=== PATIENT | female | born 1960 | race Caucasian/White ===

== ENCOUNTER 2022-03-12 06:21 | Day surgery (SDC) | payer BC, SELFPAY ==
[2022-03-12] VITALS (14 sets, daily range): BP systolic 139–184; BP diastolic 90–103; PULSE 60–75; RESP 16; TEMP 36.4–37.1; O2SAT 96–100; BMI 21.1
[2022-03-12] MEDS: ETHYL CHLORIDE 1 APPLICATION 1 APPLIC TOPICAL ×2 (07:05→07:06)
[2022-03-12] MEDS: BUPIVACAINE 0.5% 30 ML INJECTION ×3 (07:05→07:45)
[2022-03-12] MEDS: lidocaine HCL 2 % MULTIDOSE 20 ML VIAL INJECTION ×2 (07:05→07:06)
[2022-03-12] MEDS: LIDOCAINE 1 % PF 30 ML INJECTION (07:45)
[2022-03-12] MEDS: NEOMYCIN/BACITRACIN/POLYMYXIN B 1 APPLIC TOPICAL (08:29)
--- NOTE | 2022-03-14 07:49 | P.ORPRC_ITS ---
Procedure Note Date of procedure: 03/14/22 Procedure: PREOPERATIVE DIAGNOSIS: 1. Right index finger dorsal mucous cyst/benign cyst 2. Right index finger DIP joint dorsal osteophyte 3. Left hand/small finger Dupuytren's contracture with flexion contracture PIP joint of 45? POSTOPERATIVE DIAGNOSIS: 1. Right index finger dorsal mucous cyst/benign cyst 2. Right index finger DIP joint dorsal osteophyte 3. Left hand/small finger Dupuytren's contracture with flexion contracture PIP joint of 45? PROCEDURE: 1. Right index finger open dorsal mucous cyst/benign cyst excision 2. Right index finger DIP joint dorsal osteophyte open excision 3. Left hand/small finger open Dupuytren's contracture release and excision of hyperplastic palmar fibrous tissue SURGEON: Bj Orta MD. DIRECTOR OF CAREER SERVICES: [PABLITO Mensah] - Of note, an assistant director of public works was critical for this case to aid in patient positioning, tissue retraction, limb manipulation/positioning, and closure. ANESTHESIA: [Right index finger digital block via Local anesthetic (50:50 mixture of 1% lidocaine plain and 0.5% marcaine plain)]-8 mL total Left ulnar hand regional block ulnar nerve at the volar ulnar wrist with 50:50 mixture of 1% lidocaine plain and 0.5% Marcaine plain-8 mL total IMPLANTS: None TOURNIQUET: Right-Digital tourniquet index finger for 8 minutes; Left-forearm tourniquet 20 minutes at 225 torr COMPLICATIONS: None evident INDICATIONS: The patient is a pleasant 61-year-old female who has experienced right index finger dorsal mucous cyst development with pain and discomfort. She also has experienced a left small finger flexion contracture at the PIP joint related to Dupuytren's contracture. Both are causing functional limitations for her. Nonoperative management has been tried but unsuccessful. Given the shy lure of nonoperative management, and how this affects daily life, surgery was recommended. DESCRIPTION OF PROCEDURE: Following a thorough discussion of risks, benefits, and alternatives consent was obtained and the operative extremity was marked. The patient was brought to the operating room and placed supine on the operating table. No antibiotics were administered as this was planned to be a local case only. Proper time-out was performed identifying proper patient, site, and procedure. The operative extremity was prepped and draped in the appropriate sterile fashion using ChloraPrep. The limb was exsanguinated and the tourniquet inflated. Began with the right index finger. Transverse incision was made overlying the dorsal D IP joint and T'd on the radial aspect mid axial line. Sharp incision through skin and blunt dissection through subcutaneous tissue allowed us to elevate the fasciocutaneous flaps. The mucous cyst was encountered and tracked to its base at the D IP joint. The extensor tendon was visualized, protected, and elevated to expose the dorsal D IP joint. Small portion of the radial capsular tissue was excised and a combination of rongeur and rasp allow this to excise the dorsal osteophyte from the D IP joint seen radiographically. In addition, dermis and subcutaneous tissue was excised at the mucous cyst level. Thorough irrigation normal saline was performed. Digital tourniquet released and hemostasis achieved. Closure was performed with [4-O nylon]. We then turned our attention to the left hand. The limb was exsanguinated and the forearm tourniquet inflated. A Lizzette incision was made along the volar aspect of the small finger extending to the distal palm. Sharp incision through skin allowed us to gripping, the hyperplastic palmar fascial tissue consistent with Dupuytren's contracture. This was cautiously dissected circumferentially as the ulnar digital artery and nerve to the small finger or wrapped around this palmar fascial cord. The flexor tendon was encountered after dissecting down to the staff and mobilizing full-thickness fasciocutaneous flaps. After releasing the Dupuytren's cord distally, we were able to mobilize it proximally completely. It had some connections to hypothenar musculature and the volar palmar fascia. This was released completely and excised. At this stage, the tourniquet was deflated and good pulsatile flow through the ulnar digital artery visualized with brisk capillary refill to the digit distally. Hemostasis achieved. Closure performed with 4-0 nylon in interrupted fashion. Soft dressings were applied, and the patient was awoken/transferred to the recovery room in stable condition. No splint was felt necessary the small finger as it did achieve full extension with gentle passive motion. She will be seen in follow-up with Occupational therapy who will be asked to apply an Orthoplast splint. PLAN: 1. Encourage elevation of the operative extremity. 2. Range of motion of the operative extremity/digits as tolerated. 3. Ibuprofen, acetaminophen and/or Percocet as needed for pain. 4. Follow up with PA visit in 12-16 days for wound check and suture removal & occupational therapy visit for Orthoplast splint fabrication & exercise guidance.
== END 2022-03-12 09:05 | disposition home or self-care (01) ==
PROVIDERS: PCP Physician Assistant; Visit Provider Orthopaedic Surgery Sports Medicine
PROC: (CPT 26160; principal; 2022-03-12 07:30)
DX: M67.441 Ganglion, right hand (principal); M25.741 Osteophyte, right hand; M72.0 Palmar fascial fibromatosis [Dupuytren]
CPT/HCPCS: 26160; 26123; J2001; J3490

== ENCOUNTER 2022-04-05 11:30 | Outpatient (RCR) | payer BC, SELFPAY | END 2022-06-22 15:59 | disposition home or self-care (01) | PROVIDERS: PCP Physician Assistant; Visit Provider Orthopaedic Surgery Sports Medicine | DX: Z98.890 Other specified postprocedural states (principal); Z51.89 Encounter for other specified aftercare | CPT/HCPCS: 97110; 97140; 97165; L3913; X5282 ==

== ENCOUNTER 2022-09-22 09:30 | Emergency (ER) | payer BC, SELFPAY ==
[2022-09-22 09:35] VITALS: BP 128/80; PULSE 90; RESP 18; TEMP 36.3; O2SAT 99; BMI 21.3
--- NOTE | 2022-09-22 10:00 | CRLHL7_ITS ---
For Patients: As a result of the Century Cures Act, medical imaging exams and procedure reports are released immediately into your electronic medical record. You may view this report before your referring provider. If you have questions, please contact your health care provider. INDICATION: Confusion. Trauma. TECHNIQUE: Non-contrast CT of the head is submitted. No comparisons. FINDINGS: The ventricles, sulci and gyri are of normal size, shape and contour. Midline structures are centrally located. No convincing evidence of intra- or extra-axial fluid collections. IMPRESSION: 1. No radiographic evidence of acute intracranial abnormalities. Dictated by Sy Vera MD @ 09/22/2022 11:24:34 AM Please note that all CT scans at this facility use dose modulation, iterative reconstruction, and/or weight-based dosing when appropriate to reduce radiation dose to as low as reasonably achievable. Dictated by: Sy Vera MD @ 09/22/2022 11:24:42 (Electronically Signed)
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
[2022-09-22] MEDS: 0.9 % SODIUM CHLORIDE 1000 ml 1,000 ML 6000 ML IV (10:26)
[2022-09-22 10:33] LABS: Appearance Urine Slightly Cloudy (Clear); Bilirubin Urine 2+ (Negative); Blood Urine Trace-lysed (Negative); Color Urine Yellow (Yellow); Glucose Urine Negative (Negative); Ketones Urine 3+ (Negative); Leukocyte Esterase Urine 1+ (Negative); Nitrite Urine Negative (Negative); Protein Urine 2+ (Negative); Specific Gravity Urine >= 1.030 (1.000-1.030); Urobilinogen Urine 0.2 (0.2-1.0); pH Urine 5.5 (5.0-8.5)
[2022-09-22 10:35] LABS: Basophils Absolute Auto 0.02 K/uL (0.00-0.30); Basophils Percent Auto 0.2 % (0.0-3.0); Hemoglobin* 13.4 gm/dL (12.0-16.0); Immature Granulocytes Abs Auto 0.12 K/uL (0.00-0.30); Immature Granulocytes Pct Auto 1.4 %; Lymphocytes Percent Auto 7.8 % (20-44); Mean Corpuscular HGB Conc 34 gm/dL (32-36); Mean Corpuscular Hemoglobin 38 pg (26-34); Mean Corpuscular Volume 110 fL (80-100); Monocytes Percent Auto 12.8 % (0.0-11.0); Neutrophils Percent Auto 77.8 % (42.0-72.0); Platelet Count* 113 K/uL (140-440); RDW Coefficient of Variation % 16.1 % (11.5-15.5); Red Blood Count 3.56 m/uL (4.00-5.20); White Blood Count* 8.47 K/uL (4.50-11.00)
[2022-09-22 10:40] LABS: Amphetamine Screen Urine Negative (Negative); Barbiturate Screen Urine Negative (Negative); Benzodiazepines Screen Urine Negative (Negative); Cannabinoid Screen Urine Negative (Negative); Cocaine Screen Urine Negative (Negative); Methadone Screen Urine Negative (Negative); Methamphetamines Screen Urine Negative (Negative); Opiate Screen Urine Negative (Negative); Oxycodone Screen Urine Negative (Negative); Phencyclidine Screen Urine Negative (Negative); Tricyclic Antidepressant Urine Negative (Negative)
[2022-09-22 10:41] LABS: Slide Review Reflex No
[2022-09-22 10:44] LABS: Albumin* 5.5 g/dL (3.3-5.0); Chloride* 91 mmol/L (96-114); Sodium* 128 mmol/L (135-149)
[2022-09-22 10:46] LABS: Magnesium* 2.2 mg/dL (1.5-2.6)
[2022-09-22 10:47] LABS: Alanine Aminotransferase* 32 U/L (4-35); Alkaline Phosphatase* 94 U/L (40-150); Aspartate Amino Transferase* 51 U/L (12-35); Bilirubin Direct* 0.6 mg/dL (0.0-0.5); Bilirubin Total* 2.3 mg/dL (0.1-1.5); Blood Urea Nitrogen* 46 mg/dL (7-30); Carbon Dioxide* 19 mmol/L (20-32); Creatinine* 1.8 mg/dL (0.5-1.5); Estimated Glomerular Filt Rate 32 ml/min; Glucose* 91 mg/dL (60-115); Total Protein* 9.3 g/dL (6.0-8.3)
[2022-09-22 10:50] LABS: C Reactive Protein* 1.1 mg/dL (0.5-1.0)
[2022-09-22 11:01] LABS: Ethanol* < 0.01 % (0.01-0.03); NT Pro B Type NatriureticPept* 1930 pg/mL; Potassium* 2.9 mmol/L (3.6-5.1)
[2022-09-22 11:02] LABS: Troponin I* < 0.01 ng/mL (0.01-0.04)
[2022-09-22 11:05] LABS: Bacteria Urine Moderate; RBC Urine 0-2 (0-2); Squamous Epithelial Cell Urine Few (None-Few)
[2022-09-22 11:08] LABS: PCR FLU A Negative PCR FLU A (Negative); PCR FLU B Negative PCR FLU B (Negative); PCR RSV Negative PCR RSV (Negative)
[2022-09-22] MEDS: POTASSIUM CHLORIDE 10 MEQ/100 ML PIGGYBACK 100 MEQ IVPB ×2 (11:17→13:34)
[2022-09-22 11:22] LABS: SARS PCR* Negative SARS-CoV-2 (Negative)
[2022-09-22] MEDS: POTASSIUM BICARB 25 MEQ EFFERVESCENT TAB PO (13:34)
[2022-09-22 13:37] VITALS: BP 153/88; PULSE 72; RESP 18; O2SAT 100
== END 2022-09-22 13:38 | disposition home or self-care (01) ==
PROVIDERS: Emergency Provider Family Medicine
DX: R42 Dizziness and giddiness (principal); E87.6 Hypokalemia; S22.41XA Multiple fractures of ribs, right side, initial encounter for closed fracture; V19.3XXA Pedal cyclist (driver) (passenger) injured in unspecified nontraffic accident, initial encounter
CPT/HCPCS: 36415; 70450; 71250; 80048; 80076; 80306; 81001; 82077; 83735; 83880; 84443; 84484; 85025; 86140; 87086; 87631; 93005; 96365; 96366; 99284; 99285; A9270; J3480; J7030

== ENCOUNTER 2022-11-05 06:00 | Day surgery (SDC) | payer BC, SELFPAY ==
[2022-11-05] MEDS: LACTATED RINGERS 1000 ML 1,000 ML 100 ML IV (06:05)
[2022-11-05] MEDS: SODIUM CHLORIDE 0.9 % (FLUSH) 10 ML SYRINGE IVF (06:18)
[2022-11-05 06:19] VITALS: BP 136/83; PULSE 66; RESP 16; TEMP 36.8; O2SAT 98; BMI 20.7
--- NOTE | 2022-11-05 07:14 | CRLHL7_ITS ---
For Patients: As a result of the Cures Act, medical imaging exams and procedure reports are released immediately into your electronic medical record. You may view this report before your referring provider. If you have questions, please contact your health care provider. Indication: HAMMERTOE CORRECTION Technique: Two fluoroscopic images of the left forefoot. Fluoroscopic time 14.5 seconds. IMPRESSION: Fluoroscopic guidance for percutaneous pin placement about the 2nd, 3rd and 4th toes. Dictated by Joel Benavidez MD @ 11/05/2022 9:34:04 AM (Electronically Signed)
[2022-11-05] MEDS: CEFAZOLIN 1 GM inj IVP (07:20)
[2022-11-05] MEDS: BUPIVACAINE 0.5% 30 ML INJECTION (07:23)
--- NOTE | 2022-11-05 08:18 | W.ANESCHARGE ---
Anesthesia Charges Start Date/Time Anesthesia Start Date: 11/05/22 Anesthesia Start Time: 07:17 Stop Date/Time Anesthesia Stop Date: 11/05/22 Anesthesia Stop Time: 09:24
[2022-11-05 09:23] VITALS: BP 133/79; PULSE 58; RESP 16; TEMP 36.3; O2SAT 100
--- NOTE | 2022-11-05 09:27 | W.ANESCHARGE ---
Anesthesia Charges Start Date/Time Anesthesia Start Date: 11/05/22 Anesthesia Start Time: 07:17 Stop Date/Time Anesthesia Stop Date: 11/05/22 Anesthesia Stop Time: 09:24
[2022-11-05 09:30] VITALS: BP 136/77; PULSE 55; RESP 16; O2SAT 98
--- NOTE | 2022-11-05 09:43 | PM.PROC ---
Procedure Note Date Seen: 11/05/22 Date of procedure: 11/05/22 Will [facility] bill your pro fee for this procedure?: No Pre-op diagnosis: Hammertoe deformity digits 2, 3, 4 and 5 left Post-op diagnosis: same Procedure: 1. Hammertoe correction 2nd digit left 2. Hammertoe correction 3rd digit left 3. Hammertoe correction 4th digit left 4. Hammertoe correction 5th digit left 5. Exostectomy phalanx 5th digit left Procedure Description: Indication for surgery: Patient seen for ongoing hammertoe deformities that she has left him to have surgical correction of. I reviewed the procedure, recovery, expectations and potential complications. These include but are not limited to: Poor wound healing, infection, floating toe, continued pain, potential need for future surgery, nonunion, nerve injury, complex regional pain syndrome, deep venous thrombosis, pulmonary embolism and . She is status risks written consent was obtained. Sites were marked. Procedure: Patient on the operating room placed supine position on operating table the time IV sedation was initiated local anesthetic injected into the left foot. She was prepped and draped in sterile fashion. Standard time-out protocol followed. Left foot was exsanguinated and the ankle tourniquet inflated to 250 mm Hg. Transverse semielliptical incision was made over the PIPJ 2nd toe. Skin wedge was excised. The extensor tendon and joint capsule were transected. The medial and lateral collateral ligaments released. The cartilage and metaphyseal flares were resected with a oscillating saw. The head of the proximal phalanx was fashioned into a PEG with a rotary bur. Base of the middle phalanx was addressed and a hole burred. 0.045 smooth K-wire introduced in the base of the middle phalanx driven out the tip of the toe. The proximal phalanx was placed into the middle phalanx in the appropriate position in the K-wire advanced into the proximal phalanx. Clinically toe sat in excellent position. C-arm confirmed position. After irrigation redundant tendon was excised and repaired with 4-0 Vicryl. Skin closed 4-0 Prolene. Second toe was still elevated. 1 cm incision made over the 2nd MPJ. Blunt dissection down to the extensor tendon and joint capsule. Transverse incision was made through the tendon and joint capsule. Wound irrigated and closed with 4-0 Prolene. Second toe now sat in rectus position. Linear incision was made over the 3rd toe PIPJ extending proximally to the MPJ. The extensor tendon and joint capsule were transected. The medial and lateral collateral ligaments released. The cartilage and metaphyseal flares were resected with a oscillating saw. The head of the proximal phalanx was fashioned into a PEG with a rotary bur. Base of the middle phalanx was addressed and a hole burred. 0.045 smooth K-wire introduced in the base of the middle phalanx driven out the tip of the toe. The proximal phalanx was placed into the middle phalanx in the appropriate position in the K-wire advanced into the proximal phalanx. The extensor tendon and 3rd MPJ capsule were then transected. Clinically toe sat in excellent position. C-arm confirmed position. After irrigation redundant tendon was excised and repaired with 4-0 Vicryl. Skin closed 4-0 Prolene. Linear incisions made over the 4th toe PIPJ extending proximally to the MPJ. The extensor tendon and joint capsule were transected. The medial and lateral collateral ligaments released. The cartilage and metaphyseal flares were resected with a oscillating saw. The head of the proximal phalanx was fashioned into a PEG with a rotary bur. Base of the middle phalanx was addressed and a hole burred. 0.045 smooth K-wire introduced in the base of the middle phalanx driven out the tip of the toe. The proximal phalanx was placed into the middle phalanx in the appropriate position in the K-wire advanced into the proximal phalanx. The extensor tendon and and 4th MPJ capsule were then transected. Clinically toe sat in excellent position. C-arm confirmed position. After irrigation redundant tendon was excised and repaired with 4-0 Vicryl. Skin closed 4-0 Prolene. Linear incision was made over the 5th toe PIPJ. Extensor tendon and joint capsule were transected. The mediolateral collateral ligaments released. The 5th metatarsal proximal phalanx head was resected with an oscillating saw. The proximal aspect of the extensor tendon was released. Wound was thoroughly irrigated. Redundant tendon was excised and then repaired at the PIPJ. Linear incisions made at the lateral DIPJ. Incision taken down to bone. An oscillating saw was used to remove the bony flare from the DIPJ. C-arm confirmed excellent position. Wounds irrigated with normal sterile saline. Skin closed with 4-0 Prolene. All K-wires were bent cut and capped. Sterile dressing was applied. Tourniquet was released and normal capillary fill time returned all digits. She was transferred from OR to PACU vital signs stable and vascular status intact to the left foot. She will be discharged per Anesthesia. She was given both written and verbal postop instructions. She is weight-bearing as tolerated. She is given oxycodone for pain. Follow up in clinic in 2 days. Anesthesia: MAC Surgeon: Lenny Flores DPM Estimated blood loss (mL): 2 Condition: stable Disposition: same day
[2022-11-05 09:45] VITALS: BP 123/95; PULSE 52; RESP 16; O2SAT 99
[2022-11-05 10:00] VITALS: BP 130/79; PULSE 48; RESP 16; O2SAT 99
== END 2022-11-05 10:24 | disposition home or self-care (01) ==
PROVIDERS: PCP Physician Assistant; Visit Provider Podiatrist
PROC: (CPT 28285; principal; 2022-11-05 07:15)
DX: M20.42 Other hammer toe(s) (acquired), left foot (principal)
CPT/HCPCS: 28285 ×4; 01462; 01480; 73620; 76000; J0665; J0690; J2250; J2405; J2704; J3010; J7120

== ENCOUNTER 2022-11-12 18:27 | Emergency (ER) | payer BC, SELFPAY ==
--- NOTE | 2022-11-12 18:31 | CRLHL7_ITS ---
For Patients: As a result of the Century Cures Act, medical imaging exams and procedure reports are released immediately into your electronic medical record. You may view this report before your referring provider. If you have questions, please contact your health care provider. INDICATION: Leg pain and swelling. TECHNIQUE: Ultrasound venous duplex lower left extremity. Compression venous exam was performed using davis-scale, color Doppler, and spectral Doppler analysis. COMPARISON: None. FINDINGS: Deep veins: Sonographic imaging demonstrates the left common femoral, deep femoral, superficial femoral, popliteal, posterior tibial and the contralateral right common femoral veins to be fully compressible with normal color Doppler blood flow. Superficial veins: Greater saphenous vein is fully compressible. No popliteal cyst. IMPRESSION: Normal left lower extremity venous ultrasound, no sign of deep venous thrombosis. Dictated by Joey Hoover MD @ 11/12/2022 7:20:04 PM (Electronically Signed)
[2022-11-12 18:33] VITALS: BP 131/90; PULSE 97; RESP 18; TEMP 36.7; O2SAT 95; BMI 20.6
--- NOTE | 2022-11-12 18:49 | ED_ITS ---
HPI - General Adult General Time Seen by Provider: 18:50 Date Seen: 11/12/22 Chief complaint: Extremity Pain/Injury, Lower Stated complaint: left calf pain, foot surgery 11/05/22 Time Seen by Provider: 11/12/22 18:42 Source: patient, RN notes reviewed and old records reviewed Mode of arrival: ambulatory Limitations: no limitations History of Present Illness HPI narrative: 61-year-old female who comes in today with left calf pain and swelling has been going on for about a week. She notes that she had bunion surgery just prior to onset of symptoms. She is taking aspirin daily. She has noticed over the last couple of days that the swelling in the leg got a little bit better but she has had dyspnea on exertion, no chest pain, little bit of nausea. Related Data Home Medications Medication Instructions Recorded Confirmed atorvastatin 20 mg tablet 20 mg PO QDAY 02/09/22 11/05/22 metoprolol succinate 50 mg 50 mg PO DAILY 03/12/22 04/05/22 tablet,extended release 24 hr albuterol sulfate 90 mcg/actuation 1 - 2 puff inhalation Q4H PRN 11/02/22 11/05/22 aerosol inhaler dyspnea disulfiram 250 mg tablet 250 mg PO DAILY 11/02/22 11/05/22 fluticasone 250 mcg-salmeterol 50 1 inh inhalation BID 11/02/22 11/05/22 mcg/dose blistr powdr for inhalation (Advair Diskus) valacyclovir 1 gram tablet 2,000 mg PO BID PRN 11/02/22 11/02/22 (Valtrex) Previous Rx's Medication Instructions Recorded oxycodone-acetaminophen 5 mg-325 1 tab PO Q4-8H PRN pain #10 tabs 03/12/22 mg tablet (Percocet) Allergies Allergy/AdvReac Type Severity Reaction Status Date / Time No Known Drug Allergies Allergy Verified 11/12/22 19:43 [facility] Medical History (Updated 11/12/22 @ 20:42 by Nathan Noonan MD) Fatty liver ?K76.0 - Fatty (change of) liver, not elsewhere classified (ICD-10) Hypertension ?I10 - Essential (primary) hypertension (ICD-10) Alcohol abuse, in remission ?F10.11 - Alcohol abuse, in remission (ICD-10) GERD (gastroesophageal reflux disease) ?K21.9 - Gastro-esophageal reflux disease without esophagitis (ICD-10) Surgical History Hx of abdominoplasty ?Z98.890 - Other specified postprocedural states (ICD-10) History of hand surgery ?Z98.890 - Other specified postprocedural states (ICD-10) Family History Unknown Myocardial infarction Social History Smoking Status: Former smoker What tobacco products do you use: cigarettes Smoking quit date/years: >15 years ago How often do you have a drink containing alcohol: 4 or more times a week How many standard drinks containing alcohol do you have on a typical day: 3 or 4 How often do you have six or more drinks on one occasion: Daily or almost daily AUDIT-C Alcohol total score: 9 Non-prescribed substance use: denies use Caffeine: Yes Are you using contraception or practicing any form of control: No Exam Narrative: Exam Narrative: General: Well-developed and well-nourished, no acute distress Head: Atraumatic and normocephalic Eyes: Pupils are equal reactive, extraocular motions intact, conjunctiva clear ENT: External nose and ears are normal, posterior pharynx without erythema or exudate Neck: No midline cervical tenderness, full spontaneous range of motion the neck, trachea midline, no adenopathy Heart: Regular rate and rhythm no murmurs or thrills Lungs: Clear to auscultation bilaterally without wheezes or crackles Abdomen: Soft, nontender, nondistended with active bowel sounds Musculoskeletal: No tenderness, deformity, or edema Neurologic: Awake, alert, and oriented x3, no gross focal neurologic deficits, cranial nerves intact as tested Psych: Mood and affect are appropriate Skin: No rashes Const: Vital Signs, click to edit/add: Vital Signs - 24 hr 11/12/22 18:33 Temperature 98.1 F Pulse Rate [Pulse Oximeter] 97 Respiratory Rate 18 Blood Pressure [Le ft Upper Arm] 131/90 H Pulse Oximetry 95 Oxygen Delivery Me thod Room Air Course Course Hospital Course: Patient seen examined, prior records reviewed. Patient with recent left foot surgery, now with left calf pain and swelling, Doppler ultrasound is ordered. She also has developed some shortness of breath, heart rate is little high and oxygen saturation is borderline, concern for pulmonary embolism. CT PE protocol is ordered. Sensation of the foot is intact, capillary refill is normal, no pain out of proportion to suggest compartment syndrome. Reevaluation(s) Time of Reevaluation #1: 20:00 Reevaluation #1: Ultrasound negative for DVT. CT PE study independently interpreted by me does not demonstrate any large central pulmonary embolism, no infiltrates or effusion. Labs independently interpreted by me with reassuring basic panel, normal CBC with no anemia, negative troponin. Patient stable for discharge with outpatient follow-up. Time of Reevaluation #2: 20:41 Reevaluation #2: Patient recheck, stable for discharge, reviewed results Vital Signs Vital signs: Initial Vital Signs Temperature 98.1 F 11/12/22 18:33 Temperature Source Temporal Artery Scan 11/12/22 18:33 Pulse Rate 97 11/12/22 18:33 Respiratory Rate 18 11/12/22 18:33 Blood Pressure 131/90 H 11/12/22 18:33 Blood Pressure Mean 103 11/12/22 18:33 Blood Pressure Position Supine 11/12/22 18:33 Pulse Oximetry 95 11/12/22 18:33 Oxygen Delivery Method Room Air 11/12/22 18:33 Vital Signs Temperature 98.1 F 11/12/22 18:33 Pulse Rate 97 11/12/22 18:33 Respiratory Rate 18 11/12/22 18:33 Blood Pressure 131/90 H 11/12/22 18:33 Pulse Oximetry 95 11/12/22 18:33 Oxygen Delivery Method Room Air 11/12/22 18:33 Temperature 98.1 F 11/12/22 18:33 Pulse Rate 97 11/12/22 18:33 Respiratory Rate 18 11/12/22 18:33 Blood Pressure 131/90 H 11/12/22 18:33 Pulse Oximetry 95 11/12/22 18:33 Oxygen Delivery Method Room Air 11/12/22 18:33 Medical Decision Making Lab Data Labs: Lab Results 11/12/22 11/12/22 Range/Units 19:05 19:22 WBC 5.52 (4.50-11.00) K/uL RBC 3.96 L (4.00-5.20) m/uL Hgb 13.4 (12.0-16.0) gm/dL Hct 39.9 (33.0-51.0) % MCV 101 H (80-100) fL MCH 34 (26-34) pg MCHC 34 (32-36) gm/dL RDW Coeff of Soraida 13.1 (11.5-15.5) % Plt Count 219 (140-440) K/uL Neut % (Auto) 63.9 (42.0-72.0) % Lymph % (Auto) 26.1 (20-44) % [place] % (Auto) 8.3 (0.0-11.0) % Eos % (Auto) 1.3 (0.0-7.0) % Baso % (Auto) 0.4 (0.0-3.0) % Neut # (Auto) 3.53 (1.7-7.0) K/uL Lymph # (Auto) 1.44 (0.90-2.90) K/uL [place] # (Auto) 0.50 (0.00-0.90) K/UL Eos # (Auto) 0.07 (0.00-0.50) K/uL Baso # (Auto) 0.02 (0.00-0.30) K/uL Abs Immat Gran (auto) 0.00 (0.00-0.30) K/uL Imm/Tot Granulo (auto) 0.0 % Sodium 140 (135-149) mmol/L Potassium 3.7 (3.6-5.1) mmol/L Chloride 106 (96-114) mmol/L Carbon Dioxide 24 (20-32) mmol/L BUN 17 (7-30) mg/dL Creatinine 0.8 (0.5-1.5) mg/dL Estimated Creat Clear 64.26 Estimated GFR 84 ml/min Glucose 123 H (60-115) mg/dL Calcium 9.8 (8.4-10.6) mg/dL NT-Pro-B Natriuret Pep 316 pg/mL POC Creatinine 0.9 (0.6-1.3) mg/dl POC Troponin I 0.00 L (0.01-0.04) ng/ml Discharge Plan Discharge Clinical Impression: Exertional shortness of breath, Leg pain, left Patient Disposition: Home, Self-Care Condition: Stable Instructions: Leg Pain (ED) Additional Instructions: Follow-up with your primary care doctor this week or next week to discuss her shortness of breath. Call your surgeon in the morning to discuss leg pain. Activity Level: Activity as Tolerated Discharge Diet: Regular Prescriptions: No Action atorvastatin 20 mg tablet 20 mg PO QDAY metoprolol succinate 50 mg tablet extended release 24 hr 50 mg PO DAILY Patient Comments: TAKE 1 TABLET BY MOUTH ONCE DAILY oxycodone-acetaminophen [Percocet] 5-325 mg tablet 1 tab PO Q4-8H PRN (Reason: pain) Qty: 10 0RF albuterol sulfate 90 mcg/actuation HFA aerosol inhaler 1 - 2 puff INHALATION Q4H PRN (Reason: dyspnea) disulfiram 250 mg tablet 250 mg PO DAILY fluticasone propion-salmeterol [Advair Diskus] 250-50 mcg/dose blister with device 1 inh INHALATION BID valacyclovir [Valtrex] 1 gram tablet 2,000 mg PO BID PRN Follow Up/Referrals: Yara Venegas PA-C [Primary Care Provider] - Stand Alone Forms: [facility] [employer] Info Instructions
--- NOTE | 2022-11-12 18:49 | CRLHL7_ITS ---
For Patients: As a result of the Century Cures Act, medical imaging exams and procedure reports are released immediately into your electronic medical record. You may view this report before your referring provider. If you have questions, please contact your health care provider. INDICATION: RECENT FOOT SURG. LEG SWELLING. SOB COMPARISON: 09.22.22 TECHNIQUE: CT volumetric acquisition was performed of the thorax during intravenous infusion of 95CC ISOVUE 370 nonionic intravenous contrast. Please note that all CT scans at this facility use dose modulation, iterative reconstruction, and/or weight-based dosing when appropriate to reduce radiation dose to as low as reasonably achievable. FINDINGS: The CT images are of acceptable quality and demonstrate normal uniform vascular enhancement within the pulmonary arteries. There are no suspicious filling defects which would indicate pulmonary thromboemboli. There is no evidence of pleural or pericardial fluid. The heart and thoracic aorta appear normal. There is no evidence of lymphadenopathy within the central mediastinum or within either axilla. On lung window settings, there is no evidence of pneumothorax. The pulmonary parenchyma has uniform density and there is no evidence of hemorrhage or pneumonia. 2 mm left upper lobe pulmonary nodule unchanged. Right rib fractures are again noted. IMPRESSION: No evidence of pulmonary thromboembolism. Please note that all CT scans at this facility use dose modulation, iterative reconstruction, and/or weight-based dosing when appropriate to reduce radiation dose to as low as reasonably achievable. Dictated by Joel Benavidez MD @ 11/13/2022 11:25:24 AM (Electronically Signed)
[2022-11-12 19:21] LABS: Basophils Absolute Auto 0.02 K/uL (0.00-0.30); Basophils Percent Auto 0.4 % (0.0-3.0); Eosinophils Absolute Auto 0.07 K/uL (0.00-0.50); Eosinophils Percent Auto 1.3 % (0.0-7.0); Hematocrit 39.9 % (33.0-51.0); Hemoglobin* 13.4 gm/dL (12.0-16.0); Lymphocytes Absolute Auto 1.44 K/uL (0.90-2.90); Lymphocytes Percent Auto 26.1 % (20-44); Mean Corpuscular HGB Conc 34 gm/dL (32-36); Mean Corpuscular Hemoglobin 34 pg (26-34); Mean Corpuscular Volume 101 fL (80-100); Monocytes Percent Auto 8.3 % (0.0-11.0); Neutrophils Absolute Auto 3.53 K/uL (1.7-7.0); Neutrophils Percent Auto 63.9 % (42.0-72.0); Platelet Count* 219 K/uL (140-440); RDW Coefficient of Variation % 13.1 % (11.5-15.5); Red Blood Count 3.96 m/uL (4.00-5.20); White Blood Count* 5.52 K/uL (4.50-11.00)
[2022-11-12 19:26] LABS: Chloride* 106 mmol/L (96-114); Slide Review Reflex No
[2022-11-12 19:27] LABS: Potassium* 3.7 mmol/L (3.6-5.1); Sodium* 140 mmol/L (135-149)
[2022-11-12 19:27] LABS: Creatinine, Point-of-Care* 0.9 mg/dl (0.6-1.3)
[2022-11-12 19:29] LABS: Creatinine* 0.8 mg/dL (0.5-1.5); Est. Creatinine Clearance* 64.26; Estimated Glomerular Filt Rate 84 ml/min
[2022-11-12 19:30] LABS: Blood Urea Nitrogen* 17 mg/dL (7-30); Calcium* 9.8 mg/dL (8.4-10.6); Carbon Dioxide* 24 mmol/L (20-32); Glucose* 123 mg/dL (60-115)
[2022-11-12 20:07] LABS: NT Pro B Type NatriureticPept* 316 pg/mL
[2022-11-12 21:26] VITALS: BP 148/95; PULSE 75; O2SAT 99
== END 2022-11-12 21:29 | disposition home or self-care (01) ==
PROVIDERS: Emergency Provider Family Medicine; PCP Physician Assistant
DX: R06.02 Shortness of breath (principal); M79.662 Pain in left lower leg
CPT/HCPCS: 36415; 71260; 80048; 82565; 83880; 84484; 85025; 93971; 99283; 99284; Q9967

== ENCOUNTER 2023-04-04 11:46 | Emergency (ER) | payer BC, SELFPAY ==
[2023-04-04 11:54] VITALS: BP 117/81; PULSE 99; RESP 16; TEMP 36.1; O2SAT 98; BMI 20.1
--- NOTE | 2023-04-04 12:20 | CRLHL7_ITS ---
For Patients: As a result of the Century Cures Act, medical imaging exams and procedure reports are released immediately into your electronic medical record. You may view this report before your referring provider. If you have questions, please contact your health care provider. INDICATION: TRAUMA, R LOWER RIB PAIN, R CHEST PAIN, R ABD PAIN TECHNIQUE: CT chest, abdomen and pelvis acquired 57 milliliters Isovue 370 contrast. COMPARISON: November 2022 FINDINGS: CHEST: Lungs and Airways: No mass or consolidation. No endoluminal lesion. A few scattered 1-2 millimeter indeterminate pulmonary nodules. Heart and Mediastinum: Atrophic thyroid. No axillary or supraclavicular lymphadenopathy. No mediastinal, hilar or retrocrural lymphadenopathy. Normal heart size. Normal caliber aorta. Atherosclerotic calcifications. Pleura: The pleural spaces are normal. ABDOMEN: Liver: Normal enhancement. No focal suspicious hepatic lesions. Gallbladder and biliary: Normal gallbladder without radiopaque stone. Normal caliber bile ducts. Spleen: Normal size and enhancement. Pancreas: Normal enhancement without peripancreatic inflammatory changes or ductal dilatation. Adrenal glands: Normal adrenal glands. Kidneys and ureters: Normal enhancement. No radio-opaque calculi. No hydroureteronephrosis. GI tract: The stomach is relatively decompressed. Normal caliber small and large bowel loops. Normal appendix. Colonic diverticulosis without diverticulitis. Vascular structures: Normal caliber aorta with atherosclerotic calcifications. Lymph nodes: No lymphadenopathy in the abdomen or pelvis by size criteria. Peritoneum: No free air, free fluid, or focal drainable fluid collection. PELVIS: Genitourinary system: Normal urinary bladder. Atrophic uterus. SKELETAL STRUCTURES AND SOFT TISSUES: Acute minimally displaced posterior right 11th rib fracture. Old bilateral rib fractures. IMPRESSION: Acute minimally displaced posterior right 11th rib fracture. Please note that all CT scans at this facility use dose modulation, iterative reconstruction, and/or weight-based dosing when appropriate to reduce radiation dose to as low as reasonably achievable. Dictated by Joel Lorenzo MD @ 04/04/2023 2:53:37 PM (Electronically Signed)
[2023-04-04 12:41] LABS: Eosinophils Percent Auto 0.4 % (0.0-7.0); Hematocrit 35.9 % (33.0-51.0); Hemoglobin* 12.3 gm/dL (12.0-16.0); Immature Granulocytes Pct Auto 0.8 %; Lymphocytes Percent Auto 17.5 % (20-44); Mean Corpuscular HGB Conc 34 gm/dL (32-36); Mean Corpuscular Hemoglobin 35 pg (26-34); Mean Corpuscular Volume 102 fL (80-100); Monocytes Percent Auto 19.9 % (0.0-11.0); Neutrophils Percent Auto 61.4 % (42.0-72.0); Platelet Count* 75 K/uL (140-440); RDW Coefficient of Variation % 13.5 % (11.5-15.5); Red Blood Count 3.51 m/uL (4.00-5.20); White Blood Count* 2.46 K/uL (4.50-11.00)
--- NOTE | 2023-04-04 12:42 | ED.GENADULT ---
HPI - General Adult General Date Seen: 04/04/23 Chief complaint: Abdominal Pain Stated complaint: R side pain Time Seen by Provider: 04/04/23 12:03 History of Present Illness HPI narrative: This is a 62-year-old female with a past medical history including history of fatty liver, history of alcohol abuse (records indicate that she is in remission but nurses indicate that she drinks 3 times per), hypertension, GERD, and previous surgical abdominal plasty. She presents to the ER today for pain involving her right flank and right lower rib cage. She provides her history is somewhat disjointed, confusing, non chronological fashion, but best sequence of events is provided below. Her granddaughter has been sick for the past week or 2 and apparently tested positive for coronavirus, RSV, and has pneumonia. She had done around her granddaughter. She developed symptoms about 8 days ago with cough, nasal congestion, and also GI symptoms. She had several days of not vomiting and diarrhea. She has had very poor oral intake. On the whole that illness has been getting better and she is no longer having vomiting and diarrhea and no longer having cough. She tested herself at home using an at home COVID test kit last Saturday and it was negative. She thought she may have done the test improperly so she repeated the test on Saturday. She is pretty sure she did thus test on Saturday properly and it was also negative. She says she fell and bumped her right side against a dresser about 4 or 5 days ago. It is not clear if it happened on or . She says she thought it was just a minor bump. She says she has a small bruise on her right side. Since then she has been having a lot of pain affecting her right flank and right lower rib cage. The pain is not really radiate. She was talking to her daughter about the pain today and since it was on the right side of her body they were worried about appendicitis (but she is not actually having any right lower quadrant or right hip pain). She is not having a fever. She is not short of breath. She has had a poor appetite all week but pain is not related to food intake no bloody vomit. No blood in her stool. If anything she has been a bit constipated this week but she attributes her decreased in bowel movements to decreased oral intake while she was sick last week. Related Data Home Medications Medication Instructions Recorded Confirmed atorvastatin 20 mg tablet 20 mg PO QDAY 02/09/22 11/05/22 metoprolol succinate 50 mg 50 mg PO DAILY 03/12/22 04/05/22 tablet,extended release 24 hr albuterol sulfate 90 mcg/actuation 1 - 2 puff inhalation Q4H PRN 11/02/22 11/05/22 aerosol inhaler dyspnea disulfiram 250 mg tablet 250 mg PO DAILY 11/02/22 11/05/22 fluticasone 250 mcg-salmeterol 50 1 inh inhalation BID 11/02/22 11/05/22 mcg/dose blistr powdr for inhalation (Advair Diskus) valacyclovir 1 gram tablet 2,000 mg PO BID PRN 11/02/22 11/02/22 (Valtrex) Previous Rx's Medication Instructions Recorded oxycodone-acetaminophen 5 mg-325 1 tab PO Q4-8H PRN pain #10 tabs 03/12/22 mg tablet (Percocet) hydrocodone 5 mg-acetaminophen 325 1 tab PO Q6H PRN pain #10 tabs 04/04/23 mg tablet Allergies Allergy/AdvReac Type Severity Reaction Status Date / Time No Known Drug Allergies Allergy Verified 04/04/23 13:32 [facility] Medical History (Updated 04/04/23 @ 16:[address] MD) Fatty liver ?K76.0 - Fatty (change of) liver, not elsewhere classified (ICD-10) Hypertension ?I10 - Essential (primary) hypertension (ICD-10) Alcohol abuse, in remission ?F10.11 - Alcohol abuse, in remission (ICD-10) GERD (gastroesophageal reflux disease) ?K21.9 - Gastro-esophageal reflux disease without esophagitis (ICD-10) Surgical History Hx of abdominoplasty ?Z98.890 - Other specified postprocedural states (ICD-10) History of hand surgery ?Z98.890 - Other specified postprocedural states (ICD-10) Family History Unknown Myocardial infarction Social History Smoking Status: Former smoker What tobacco products do you use: cigarettes Smoking quit date/years: >15 years ago How often do you have a drink containing alcohol: 4 or more times a week How many standard drinks containing alcohol do you have on a typical day: 3 or 4 How often do you have six or more drinks on one occasion: Daily or almost daily AUDIT-C Alcohol total score: 9 Non-prescribed substance use: denies use Caffeine: Yes Are you using contraception or practicing any form of control: No Exam Narrative: Exam Narrative: Constitutional: Appears well-developed and well-nourished. Alert. Conversant and polite but she is a somewhat poor historian. As an example, she told the registration for folks at triage that she was negative for COVID. When her triage nurse asked her about it she said she was exposed to COVID and that she had a positive test. When I ask her about COVID she says she was exposed to COVID but dad had 2 test at home and they were negative. Overall breathing easily, be having discomfort in her right flank, but Non toxic. HENT: Head: Atraumatic. Nose: Nose normal. Mouth/Throat: Oral mucosa is clear and moist. no trismus. Pharynx normal. Tonsils symmetric. No tonsillar enlargement, erythema, or exudate. Eyes: Conjunctivae normal. EOM normal. Pupils equal, round, and reactive to light. No scleral icterus. Neck: Normal range of motion. Neck supple. No tracheal deviation present. Cardiovascular: Normal rate, regular rhythm. No gallop. No friction rub. No murmur heard. Symmetric radial artery pulses Pulmonary/Chest: Effort normal. No stridor. No respiratory distress. No wheezes. No rales. No rhonchi . She has a fairly large area of ecchymosis affecting her right lateral rib cage and right flank. It is roughly 6 x 15 cm in size wrapping around from right lateral chest wall to the posterior ribs. She has right lower posterior and right lower lateral rib cage tenderness without any definite crepitus. Also right CVA tenderness and mild right abdominal tenderness. No definite hepatomegaly. No Whitten sign. No epigastric tenderness. Abdominal: Soft. Bowel sounds normal. No distension. No mass. Very far right lateral right upper quadrant tenderness. No Whitten sign. No epigastric tenderness. No right lower quadrant tenderness. No left-sided tenderness. No rebound. No guarding. Musculoskeletal: No bony crepitus of her rib cage. No tenderness or step-off or crepitus on the midline thoracic or lumbar spines. Pelvis is stable. RUE: Normal range of motion. No tenderness. No deformity LUE: Normal range of motion. No tenderness. No deformity RLE: Normal range of motion. No edema. No tenderness. No deformity LLE: Normal range of motion. No edema. No tenderness. No deformity Lymph: No cervical adenopathy. Neurological: Alert and oriented to person, place, and time. Normal strength. CN II-VII intact. No sensory deficit. GCS eye subscore is 4. GCS verbal subscore is 5. GCS motor subscore is 6. Normal coordination Skin: Skin is warm and dry. No rash noted. No pallor. Normal capillary refill. Psychiatric: Normal mood. Normal affect. Const: Vital Signs, click to edit/add: Vital Signs - 24 hr 04/04/23 11:54 04/04/23 15:26 Temperature 96.9 F L 98.7 F Pulse Rate [Pulse Oximeter] 99 90 Respiratory Rate 16 12 Blood Pressure [Le ft Upper Arm] 117/81 112/72 Pulse Oximetry 98 95 Oxygen Delivery Me thod Room Air Course Course ED Course: Recheck-vital stable. Resting him back in bed watching a movie when I came back to recheck. She is conversant. She is comfortable discharging to home. She wants to get her IV out. Vital Signs Vital signs: Initial Vital Signs Temperature 96.9 F L 04/04/23 11:54 Temperature Source Temporal Artery Scan 04/04/23 11:54 Pulse Rate 99 04/04/23 11:54 Respiratory Rate 16 04/04/23 11:54 Blood Pressure 117/81 04/04/23 11:54 Blood Pressure Mean 93 04/04/23 11:54 Pulse Oximetry 98 04/04/23 11:54 Vital Signs Temperature 96.9 F L 04/04/23 11:54 Pulse Rate 99 04/04/23 11:54 Respiratory Rate 16 04/04/23 11:54 Blood Pressure 117/81 04/04/23 11:54 Pulse Oximetry 98 04/04/23 11:54 Temperature 98.7 F 04/04/23 15:26 Pulse Rate 90 04/04/23 15:26 Respiratory Rate 12 04/04/23 15:26 Blood Pressure 112/72 04/04/23 15:26 Pulse Oximetry 95 04/04/23 15:26 Oxygen Delivery Method Room Air 04/04/23 15:26 Medical Decision Making MDM Narrative Medical decision making narrative: This is a 62-year-old female presenting to the ER today with initial complaint of pain involving her right flank and right abdomen. She was concerned about possible appendicitis. Differential is broad including kidney stone, pyelonephritis, liver disease, gallbladder. However ultimately it turns out she actually injured her right lower rib cage when she smashed her side against a dresser 5 days ago. She has large ecchymosis there. I am more concerned about posttraumatic pathology. Differential would include rib fracture, hemo/pneumothorax, liver contusion or laceration, kidney injury, among others. CT scan was obtained and does concur confirm the presence of a right 11th rib fracture. No evidence for other deeper injury such as pulmonary injury, hemo/pneumothorax, liver injury, renal injury. She is hemodynamically stable. Laboratory workup was undertaken and shows multiple abnormal findings. She has pancytopenia with a white count of 2.4, platelet count of 75, and borderline low hemoglobin at 12.3. Suspect that her low white count low platelet could be reactive to a recent viral illness. She was sick last week with illness she caught from her granddaughter. She is COVID negative, influenza negative, RSV negative today. It is also possible that her blood counts are low due to malnutrition from alcohol abuse. She is a bit evasive about how much she is drinking now days. LFTs are also abnormal with AST of 237 and ALT of 126. This could be an alcohol had hepatitis pattern. They are elevated from previous measurements in September. Fortunately bilirubin total protein are normal. No evidence for cirrhosis or abnormal liver morphology on CT scan. We discussed the potential for alcohol abuse. She is a bit evasive about how much she is drinking. She had told her nurse that she drinks 3 times per week and she told me she drinks less than that. I advised her to completely abstain from alcohol, and she intends to eat healthy diet. She will recheck her labs with her doctor within 1 week. She will use [id number] medications such as Tylenol or ibuprofen for rib fracture pain. Prescription for [place] provided. She understands opiate precautions and addiction potential. Lab Data Labs: Lab Results 04/04/23 04/04/23 04/04/23 Range/Units 12:30 12:57 14:40 WBC 2.46 L (4.50-11.00) K/uL RBC 3.51 L (4.00-5.20) m/uL Hgb 12.3 (12.0-16.0) gm/dL Hct 35.9 (33.0-51.0) % MCV 102 H (80-100) fL MCH 35 H (26-34) pg MCHC 34 (32-36) gm/dL RDW Coeff of Soraida 13.5 (11.5-15.5) % Plt Count 75 L (140-440) K/uL Neut % (Auto) 61.4 (42.0-72.0) % Lymph % (Auto) 17.5 L (20-44) % Dewitt % (Auto) 19.9 H (0.0-11.0) % Eos % (Auto) 0.4 (0.0-7.0) % Baso % (Auto) 0.0 (0.0-3.0) % Neut # (Auto) 1.50 L (1.7-7.0) K/uL Lymph # (Auto) 0.40 L (0.90-2.90) K/uL Dewitt # (Auto) 0.50 (0.00-0.90) K/UL Eos # (Auto) 0.00 (0.00-0.50) K/uL Baso # (Auto) 0.00 (0.00-0.30) K/uL Abs Immat Gran (auto) 0.00 (0.00-0.30) K/uL Imm/Tot Granulo (auto) 0.8 % Sodium 129 L (135-149) mmol/L Potassium 4.1 (3.6-5.1) mmol/L Chloride 92 L (96-114) mmol/L Carbon Dioxide 21 (20-32) mmol/L Anion Gap 16 H (7-15) mEq/L BUN 4 L (7-30) mg/dL Creatinine 0.6 (0.5-1.5) mg/dL Estimated Creat Clear 49.50 Estimated GFR 102 ml/min Glucose 100 (60-115) mg/dL Calcium 9.4 (8.4-10.6) mg/dL Total Bilirubin 0.9 (0.1-1.5) mg/dL AST 237 H (12-35) U/L ALT 126 H (4-35) U/L Alkaline Phosphatase 104 (40-150) U/L Total Protein 7.5 (6.0-8.3) g/dL Albumin 4.6 (3.3-5.0) g/dL Urine Color Yellow (Yellow) Urine Appearance Clear (Clear) Urine pH 5.5 (5.0-8.5) Ur Specific [place] <= 1.005 (1.000-1.030) Urine Protein Negative (Negative) Urine Glucose (UA) Negative (Negative) Urine Ketones Negative (Negative) Urine Blood Negative (Negative) Urine Nitrite Negative (Negative) Urine Bilirubin Negative (Negative) Urine Urobilinogen 0.2 (0.2-1.0) Ur Leukocyte Esterase 1+ A (Negative) Urine RBC 0-2 (0-2) Urine WBC 2-5 (0-5) Ur Squamous Epith Cells Few (None-Few) Urine Bacteria Few A (None) SARS-CoV-2 (PCR) Negative SARS-CoV-2 (Negative) Influenza Type A (PCR) Negative PCR FLU A (Negative) Influenza Type B (PCR) Negative PCR FLU B (Negative) RSV (PCR) Negative PCR RSV (Negative) Discharge Plan Discharge Clinical Impression: Closed rib fracture, Abnormal LFTs, Hyponatremia, Pancytopenia Patient Disposition: Home, Self-Care Condition: Stable Instructions: Rib Fracture (ED), Hyponatremia (ED) Additional Instructions: Your scan today shows that you have a fracture involving your right 11th rib. This is probably caused by by me against the dresser few days ago. Fortunately, you did not injure any of your internal organs or puncture your lung. Your rib fracture will take a few weeks to heal but should get steadily better. To manage her pain, use Tylenol or ibuprofen if needed. Use the prescription pain killer (Bro[place]) if needed for bad pain that is not controlled by Tylenol or ibuprofen. Use caution with [place] because it is an opiate. It can be addictive. Opiates can also cause constipation, drowsiness, and dizziness. If you have worsening pain in your chest, worsening trouble breathing, or worsening cough, please recheck with your doctor or come back to the ER right away Your blood work today shows abnormal liver function tests and mildly abnormal blood counts. This could be related to your recent illness or could be related to too much alcohol consumption. Please abstain from alcohol. Follow-up with your regular doctor to recheck your blood work within 1 week. Prescriptions: New hydrocodone-acetaminophen 5-325 mg tablet 1 tab PO Q6H PRN (Reason: pain) Qty: 10 0RF No Action atorvastatin 20 mg tablet 20 mg PO QDAY metoprolol succinate 50 mg tablet extended release 24 hr 50 mg PO DAILY Patient Comments: TAKE 1 TABLET BY MOUTH ONCE DAILY oxycodone-acetaminophen [Percocet] 5-325 mg tablet 1 tab PO Q4-8H PRN (Reason: pain) Qty: 10 0RF albuterol sulfate 90 mcg/actuation HFA aerosol inhaler 1 - 2 puff INHALATION Q4H PRN (Reason: dyspnea) disulfiram 250 mg tablet 250 mg PO DAILY fluticasone propion-salmeterol [Advair Diskus] 250-50 mcg/dose blister with device 1 inh INHALATION BID valacyclovir [Valtrex] 1 gram tablet 2,000 mg PO BID PRN Follow Up/Referrals: Yara Venegas PA-C [Primary Care Provider] - Stand Alone Forms: [employer] Info Instructions
[2023-04-04 12:43] LABS: Slide Review Reflex No
--- OUTSIDE RECORDS SUMMARY | 2023-04-04 13:00 | XMS_ITS | Continuity of Care Document ---
Author Name Unknown Organization [facility] Address [address] [place] [address] Phone Care Team Providers Care Braiding Machine Operator Name Role Phone Litzy SONI MD, Edmund Unavailable Unavailable Advance Directives Directive Yes / No Effective Date File Name No Information Encounters Encounter Description Practice Location Reason(s) For Visit Diagnoses Date Provider Providers Copied on Encounter [facility], [address], [place], [place], [id number], [place] tel:[phone] No Information Litzy SONI Edmund. [id number], [facility], [place], [address], [place]. tel:[phone] Referring Provider: Yari Marks MD, [address] [place] [address], [address]. tel:[phone] Family History Family Member Type Diagnosis Age At Onset No Information Payers Payer name Insurance type Covered democrat ID Authoriza tion(s) [employer] CI [id number] Social History Type Description Quantity Date Captured Comments Sex Female Smoking Status No Information Chief Complaint And Reason For Visit No Information Reason For Referral Reason For Referral No Information History Of Present Illness Encounter Date Complaint History Of Prese nt Illness No Information Functional Status Date Functional Assessmen t No Information Instructions Date Instruction Additional Infor mation No Information Assessments Type Assessment Date No Information Patient Care Teams Name Effective Dates (start - stop) Status Members No Information
[2023-04-04 13:10] LABS: Albumin* 4.6 g/dL (3.3-5.0); Chloride* 92 mmol/L (96-114)
[2023-04-04 13:11] LABS: Potassium* 4.1 mmol/L (3.6-5.1); Sodium* 129 mmol/L (135-149)
[2023-04-04 13:13] LABS: Anion Gap 16 mEq/L (7-15); Aspartate Amino Transferase* 237 U/L (12-35); Bilirubin Total* 0.9 mg/dL (0.1-1.5); Carbon Dioxide* 21 mmol/L (20-32); Creatinine* 0.6 mg/dL (0.5-1.5); Estimated Glomerular Filt Rate 102 ml/min
[2023-04-04 13:14] LABS: Alanine Aminotransferase* 126 U/L (4-35); Alkaline Phosphatase* 104 U/L (40-150); Blood Urea Nitrogen* 4 mg/dL (7-30); Calcium* 9.4 mg/dL (8.4-10.6); Glucose* 100 mg/dL (60-115); Total Protein* 7.5 g/dL (6.0-8.3)
[2023-04-04 13:46] LABS: PCR FLU A Negative PCR FLU A (Negative); PCR FLU B Negative PCR FLU B (Negative); PCR RSV Negative PCR RSV (Negative)
[2023-04-04 14:18] LABS: SARS PCR* Negative SARS-CoV-2 (Negative)
[2023-04-04 14:56] LABS: Appearance Urine Clear (Clear); Bilirubin Urine Negative (Negative); Blood Urine Negative (Negative); Color Urine Yellow (Yellow); Glucose Urine Negative (Negative); Ketones Urine Negative (Negative); Leukocyte Esterase Urine 1+ (Negative); Nitrite Urine Negative (Negative); Protein Urine Negative (Negative); Specific Gravity Urine <= 1.005 (1.000-1.030); Urobilinogen Urine 0.2 (0.2-1.0); pH Urine 5.5 (5.0-8.5)
[2023-04-04 14:59] LABS: RBC Urine 0-2 (0-2)
[2023-04-04 15:03] LABS: Bacteria Urine Few; Squamous Epithelial Cell Urine Few (None-Few)
[2023-04-04 15:26] VITALS: BP 112/72; PULSE 90; RESP 12; TEMP 37.1; O2SAT 95
== END 2023-04-04 16:21 | disposition home or self-care (01) ==
PROVIDERS: Emergency Provider Emergency Medicine; PCP Physician Assistant
DX: S22.31XA Fracture of one rib, right side, initial encounter for closed fracture (principal); W18.30XA Fall on same level, unspecified, initial encounter; R94.5 Abnormal results of liver function studies; E87.1 Hypo-osmolality and hyponatremia
CPT/HCPCS: 36415; 71260; 74177; 80053; 81001; 85025; 87086; 87631; 99284; Q9967

== ENCOUNTER 2024-03-18 06:35 | Emergency (ER) | payer OTHER, SELFPAY ==
[2024-03-18 06:44] VITALS: BP 172/123; PULSE 124; RESP 16; TEMP 37.2; O2SAT 99; BMI 19.9
--- NOTE | 2024-03-18 07:07 | ED_ITS ---
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 VBG pO2 36.3 Cancelled (25-47) mmHG VBG HCO3 21 (21-28) mmol/L Sodium (135-149) mmol/L Potassium (3.6-5.1) mmol/L Chloride (96-114) mmol/L Carbon Dioxide (20-32) mmol/L Anion Gap (7-15) mEq/L BUN (7-30) mg/dL Creatinine (0.5-1.5) mg/dL Estimated Creat Clear Estimated GFR ml/min Glucose (60-115) mg/dL Lactate (0.5-1.9) mmol/L Calcium (8.4-10.6) mg/dL Magnesium (1.5-2.6) mg/dL Total Bilirubin (0.1-1.5) mg/dL Direct Bilirubin (0.0-0.5) mg/dL AST (12-35) U/L ALT (4-35) U/L Alkaline Phosphatase (40-150) U/L Total Protein (6.0-8.3) g/dL Albumin (3.3-5.0) g/dL TSH (0.270-4.20) uIU/mL Urine Color (Yellow) Urine Appearance (Clear) Urine pH (5.0-8.5) Ur Specific [place] (1.000-1.030) Urine Protein (Negative) Urine Glucose (UA) (Negative) Urine Ketones (Negative) Urine Blood (Negative) Urine Nitrite (Negative) Urine Bilirubin (Negative) Urine Urobilinogen (0.2-1.0) Ur Leukocyte Esterase (Negative) Urine RBC (0-2) Urine WBC (0-5) Ur Squamous Epith Cells (None-Few) Amorphous Sediment (None) Urine Bacteria (None) Salicylates (1.0-10) mg/dL Urine Opiates Screen (Negative) Ur Oxycodone Screen (Negative) Urine Methadone Screen (Negative) Acetaminophen (10.0-30.0) ug/mL Ur Barbiturates Screen (Negative) U Tricyclic Antidepress (Negative) Ur Phencyclidine Scrn (Negative) Ur Amphetamines Screen (Negative) U Methamphetamines Scrn (Negative) U Benzodiazepines Scrn (Negative) Urine Cocaine Screen (Negative) U Marijuana (THC) Screen (Negative) Ur Drug Screen Comment Ethyl Alcohol (0.01-0.03) % SARS-CoV-2 (PCR) (Negative) 03/18/24 03/18/24 03/18/24 Range/Units 07:15 07:15 11:40 WBC (4.50-11.00) K/uL RBC (4.00-5.20) m/uL Hgb (12.0-16.0) gm/dL Hct (33.0-51.0) % MCV (80-100) fL MCH (26-34) pg MCHC (32-36) gm/dL RDW Coeff of [place] (11.5-15.5) % Plt Count (140-440) K/uL Neut % (Auto) (42.0-72.0) % Lymph % (Auto) (20-44) % [place] % (Auto) (0.0-11.0) % Eos % (Auto) (0.0-7.0) % Baso % (Auto) (0.0-3.0) % Neut # (Auto) (1.7-7.0) K/uL Lymph # (Auto) (0.90-2.90) K/uL [place] # (Auto) (0.00-0.90) K/UL Eos # (Auto) (0.00-0.50) K/uL Baso # (Auto) (0.00-0.30) K/uL Abs Immat Gran (auto) (0.00-0.30) K/uL Imm/Tot Granulo (auto) % INR (0.91-1.10) VBG pH (7.32-7.43) VBG pCO2 (40-50) mmHG VBG pO2 (25-47) mmHG VBG HCO3 Cancelled (21-28) mmol/L Sodium 135 (135-149) mmol/L Potassium 2.9 L* (3.6-5.1) mmol/L Chloride 95 L (96-114) mmol/L Carbon Dioxide 18 L (20-32) mmol/L Anion Gap 22 H (7-15) mEq/L BUN 27 (7-30) mg/dL Creatinine 1.2 (0.5-1.5) mg/dL Estimated Creat Clear 40.38 Estimated GFR 51 ml/min Glucose 87 (60-115) mg/dL Lactate 4.6 H* (0.5-1.9) mmol/L Calcium 9.8 (8.4-10.6) mg/dL Magnesium 1.8 (1.5-2.6) mg/dL Total Bilirubin 1.9 H (0.1-1.5) mg/dL Direct Bilirubin 0.8 H (0.0-0.5) mg/dL AST 72 H (12-35) U/L ALT 54 H (4-35) U/L Alkaline Phosphatase 97 (40-150) U/L Total Protein 8.3 (6.0-8.3) g/dL Albumin 5.1 H (3.3-5.0) g/dL TSH 8.640 H (0.270-4.20) uIU/mL Urine Color (Yellow) Urine Appearance (Clear) Urine pH (5.0-8.5) Ur Specific [place] (1.000-1.030) Urine Protein (Negative) Urine Glucose (UA) (Negative) Urine Ketones (Negative) Urine Blood (Negative) Urine Nitrite (Negative) Urine Bilirubin (Negative) Urine Urobilinogen (0.2-1.0) Ur Leukocyte Esterase (Negative) Urine RBC (0-2) Urine WBC (0-5) Ur Squamous Epith Cells (None-Few) Amorphous Sediment (None) Urine Bacteria (None) Salicylates < 1.0 L Cancelled (1.0-10) mg/dL Urine Opiates Screen (Negative) Ur Oxycodone Screen (Negative) Urine Methadone Screen (Negative) Acetaminophen < 10.0 L (10.0-30.0) ug/mL Ur Barbiturates Screen (Negative) U Tricyclic Antidepress (Negative) Ur Phencyclidine Scrn (Negative) Ur Amphetamines Screen (Negative) U Methamphetamines Scrn (Negative) U Benzodiazepines Scrn (Negative) Urine Cocaine Screen (Negative) U Marijuana (THC) Screen (Negative) Ur Drug Screen Comment Ethyl Alcohol < 0.00 L (0.01-0.03) % SARS-CoV-2 (PCR) Negative SARS-CoV-2 (Negative) <Joel Ramirez MD - Last Filed: 03/18/24 13:48> Discharge Plan Discharge Clinical Impression: Hallucinations, Paranoid delusion, Alcohol withdrawal <Kendra Tan MD - Last Filed: 03/19/24 20:23> Patient Disposition: er [facility] <Kendra Tan MD - Last Filed: 03/19/24 20:23> Discharge Location: [facility] <Kendra Tan MD - Last Filed: 03/19/24 20:23> Condition: Stable <Kendra Tan MD - Last Filed: 03/19/24 20:23> Prescriptions: No Action atorvastatin 20 mg tablet 20 mg PO QDAY metoprolol succinate 50 mg tablet extended release 24 hr 50 mg PO DAILY Patient Comments: TAKE 1 TABLET BY MOUTH ONCE DAILY oxycodone-acetaminophen [Percocet] 5-325 mg tablet 1 tab PO Q4-8H PRN (Reason: pain) Qty: 10 0RF albuterol sulfate 90 mcg/actuation HFA aerosol inhaler 1 - 2 puff INHALATION Q4H PRN (Reason: dyspnea) disulfiram 250 mg tablet 250 mg PO DAILY fluticasone propion-salmeterol [Advair Diskus] 250-50 mcg/dose blister with device 1 inh INHALATION BID valacyclovir [Valtrex] 1 gram tablet 2,000 mg PO BID PRN hydrocodone-acetaminophen 5-325 mg tablet 1 tab PO Q6H PRN (Reason: pain) Qty: 10 0RF fluoxetine 10 mg capsule 10 mg PO DAILY <Kendra Tan MD - Last Filed: 03/19/24 20:23> Stand Alone Forms: [facility] Info Instructions <Kendra Tan MD - Last Filed: 03/19/24 20:23>
[2024-03-18 07:28] LABS: HCO3 VBG 21 mmol/L (21-28); PCO2 VBG 38 mmHG (40-50); PO2 VBG 36.3 mmHG (25-47); pH VBG 7.357 (7.32-7.43)
[2024-03-18 07:29] LABS: Lactate* 4.6 mmol/L (0.5-1.9)
[2024-03-18 07:40] LABS: Basophils Absolute Auto 0.01 K/uL (0.00-0.30); Basophils Percent Auto 0.2 % (0.0-3.0); Hematocrit* 38.9 % (33.0-51.0); Hemoglobin* 13.2 gm/dL (12.0-16.0); Immature Granulocytes Abs Auto 0.04 K/uL (0.00-0.30); Immature Granulocytes Pct Auto 0.7 %; Lymphocytes Percent Auto 7.5 % (20-44); Mean Corpuscular HGB Conc 34 gm/dL (32-36); Mean Corpuscular Hemoglobin 37 pg (26-34); Mean Corpuscular Volume 108 fL (80-100); Monocytes Percent Auto 11.7 % (0.0-11.0); Neutrophils Percent Auto 79.9 % (42.0-72.0); Platelet Count* 66 K/uL (140-440); RDW Coefficient of Variation % 12.2 % (11.5-15.5); Red Blood Count* 3.61 m/uL (4.00-5.20); White Blood Count* 5.97 K/uL (4.50-11.00)
[2024-03-18 07:43] LABS: Slide Review Reflex No
--- OUTSIDE RECORDS SUMMARY | 2024-03-18 07:43 | XMS_ITS | Clinical Summary ---
Author Organization [facility] Address [address] [place] [address] Care Team Providers Care Nonprofit Manager Name Role Phone Junior Enamorado MD Primary Care Provider Unavaila ble Source Comments You are receiving this document as you are listed as the primary care provider,follow-up provider, or the patient has been referred to you for consultation.This is in compliance with the Medicare and[facility] EHR Incentive Program,which states Providers who transition their patient to another setting of careor provider of care or refers their patient to another provider of care shouldprovide summary care record for each transition of care or referral. [facility] Social History Tobacco Use Types Packs/Day Years Used Date Smoking Tobacco: Never Assessed Sex and Gender Information Value Date Recorded Sex Assigned at Not on file Gender Identity Not on file Sexual Orientation Not on file Last Filed Vital Signs Vital Sign Reading Time Taken Comments Blood Pressure - - Pulse - - Temperature - - Respiratory Rate - - Oxygen Saturation - - Inhaled Oxygen Concentration - - Weight 52.8 kg (116 lb 8 oz) 09/12/2023 1:14 PM CDT Height 162.6 cm (5' 4) 09/12/2023 1:14 PM CDT Body Mass Index 20 09/12/2023 1:14 PM CDT Plan of Treatment Health Maintenance Due Date Last Done Comments Colon Cancer Screening Plan Due 1961 Hep C Screening (Preventive Services) 1961 Mammogram 1961 HIV Screening (Preventive Services) 1977 Adult Preventive Visit 12/23/1979 Cervical Cancer Screening Due 01/03/1999 01/02/1999 Cholesterol 2006 COVID-19 Vaccine (2023- season) 2023 Influenza (#1) 2023 02/01/2022, 04/08, 03/24/2019, Additional history exists DTaP/Tdap/Td (3 - Tdap) 03/24/2029 03/24/20 19, 07/20/2008, 06/13/2006 RSV (1 - 1-dose 75+ series) 2036 Zoster/Shingles Completed 09/13/2022, 06/11/2022 HepA Aged Out No longer eligi ble based on patient's age to complete this topic HepB Aged Out No longer eligi ble based on patient's age to complete this topic Hib Aged Out No longer eligi ble based on patient's age to complete this topic IPV (Pol[place]) Aged Out No longer eligi ble based on patient's age to complete this topic MCV4 Aged Out No longer eligi ble based on patient's age to complete this topic Pneumococcal Aged Out No longer eligi ble based on patient's age to complete this topic Procedures Procedure Name Priority Date/Time Associated Diagnosis Comments ANATOMICAL PATH-C Routine 01/02/1999 5: 54 AM CDT from Last 3 Months or Most Recently Relevant to Health Maintenance Results * Anatomical Path-C (01/02/1999 5:54 AM CDT) PAP Smear SEE TEXT No normal range HP CONVERSION Comment: Patient: GABRIELLA VALDOVINOS CERVICAL CYTOLOGY REPORT Pathology # [id number] Date Obtained: Date Received: LMP: 12-09-98 CLINICAL HIST CERVICAL SMEAR SPECIMEN ADEQUACY: Satisfactory. ENDOCERVICAL CELLS: Present. CYTOLOGIC IMPRESSION: Within Normal Limits (Negative). Fungal organisms identified. Verified 01/09/99 by: AYE (electronic signature) 01/02/1999 5:54 AM CDT Trey Real MD LAB_1 HP CONVERSION from Last 3 Months or Most Recently Relevant to Health Maintenance Care Teams Nonprofit Manager Relationship Specialty Start Date End Date Junior Enamorado MD PCP - General 07/09/10
[2024-03-18 07:58] LABS: Appearance Urine Clear (Clear); Bilirubin Urine 1+ (Negative); Blood Urine 1+ (Negative); Color Urine Yellow (Yellow); Glucose Urine Negative (Negative); Ketones Urine 1+ (Negative); Leukocyte Esterase Urine 3+ (Negative); Nitrite Urine Positive (Negative); Protein Urine 1+ (Negative); Specific Gravity Urine 1.025 (1.000-1.030); Urobilinogen Urine 0.2 (0.2-1.0)
[2024-03-18] MEDS: 0.9 % SODIUM CHLORIDE 1000 ml 1,000 ML 500 ML IV (07:58)
[2024-03-18 07:59] LABS: Amphetamine Screen Urine Negative (Negative); Barbiturate Screen Urine Negative (Negative); Benzodiazepines Screen Urine Negative (Negative); Cannabinoid Screen Urine Negative (Negative); Cocaine Screen Urine Negative (Negative); Methadone Screen Urine Negative (Negative); Methamphetamines Screen Urine Negative (Negative); Opiate Screen Urine Negative (Negative); Oxycodone Screen Urine Negative (Negative); Phencyclidine Screen Urine Negative (Negative); Tricyclic Antidepressant Urine Negative (Negative)
[2024-03-18 08:02] LABS: Albumin* 5.1 g/dL (3.3-5.0); Chloride* 95 mmol/L (96-114); Sodium* 135 mmol/L (135-149)
[2024-03-18 08:04] LABS: Blood Urea Nitrogen* 27 mg/dL (7-30); Creatinine* 1.2 mg/dL (0.5-1.5); Est. Creatinine Clearance* 40.38; Estimated Glomerular Filt Rate 51 ml/min
[2024-03-18 08:05] LABS: Alanine Aminotransferase* 54 U/L (4-35); Alkaline Phosphatase* 97 U/L (40-150); Anion Gap 22 mEq/L (7-15); Aspartate Amino Transferase* 72 U/L (12-35); Bilirubin Direct* 0.8 mg/dL (0.0-0.5); Bilirubin Total* 1.9 mg/dL (0.1-1.5); Calcium* 9.8 mg/dL (8.4-10.6); Carbon Dioxide* 18 mmol/L (20-32); Glucose* 87 mg/dL (60-115); Total Protein* 8.3 g/dL (6.0-8.3)
[2024-03-18 08:14] LABS: Potassium* 2.9 mmol/L (3.6-5.1)
[2024-03-18 08:27] LABS: Magnesium* 1.8 mg/dL (1.5-2.6)
[2024-03-18 08:28] LABS: Amorphous Sediment Urine Few; Bacteria Urine Many; Squamous Epithelial Cell Urine Many (None-Few); WBC Urine 50-100 (0-5)
[2024-03-18 08:28] LABS: INR 0.99 (0.91-1.10); Prothrombin Time 13.7 Seconds
[2024-03-18 08:33] LABS: Acetaminophen* < 10.0 ug/mL (10.0-30.0); Ethanol* < 0.00 % (0.01-0.03); Salicylate* < 1.0 mg/dL (1.0-10)
[2024-03-18] MEDS: POTASSIUM BICARB 25 MEQ EFFERVESCENT TAB PO ×2 (09:08→11:35)
[2024-03-18 09:15] VITALS: BP 178/97; PULSE 97; RESP 16; O2SAT 98
[2024-03-18 12:19] LABS: SARS PCR* Negative SARS-CoV-2 (Negative)
[2024-03-18 13:00] VITALS: BP 148/106
[2024-03-18] MEDS: LORazepam 2 MG/ML inj 1 MG IVP (14:24)
== END 2024-03-18 15:00 ==
PROVIDERS: Emergency Provider Family Medicine; PCP Physician Assistant
DX: R44.3 Hallucinations, unspecified (principal); F60.0 Paranoid personality disorder; F10.239 Alcohol dependence with withdrawal, unspecified; F10.229 Alcohol dependence with intoxication, unspecified
CPT/HCPCS: 36415; 80048; 80076; 80143; 80179; 80306; 81001; 82077; 82803; 83605; 83735; 84443; 85025; 85610; 87086; 87635; 93005; 96374; 99285; A0425; A0428; A9270; J2060; J7030

== ENCOUNTER 2024-08-20 10:21 | Emergency (ER) | payer OTHER, SELFPAY ==
[2024-08-20 10:52] VITALS: BP 135/92; PULSE 80; RESP 18; TEMP 36.6; O2SAT 98; BMI 21.2
--- NOTE | 2024-08-20 14:13 | ED.GENADULT ---
HPI - General Adult General Time Seen by Provider: 14:13 <Joey Garcia MD - Last Filed: 09/23/24 12:07> Date Seen: 08/20/24 <Joey Garcia MD - Last Filed: 09/23/24 12:07> Chief complaint: Unspecified Complaint, Adult <Joey Garcia MD - Last Filed: 09/23/24 12:07> Stated complaint: diagnos with lumps- having abdominal and back pain <Joey Garcia MD - Last Filed: 09/23/24 12:07> Time Seen by Provider: 08/20/24 14:10 <Joey Garcia MD - Last Filed: 09/23/24 12:07> Source: patient <Joey Garcia MD - Last Filed: 09/23/24 12:07> Mode of arrival: ambulatory <Joey Garcia MD - Last Filed: 09/23/24 12:07> Limitations: no limitations <Joey Garcia MD - Last Filed: 09/23/24 12:07> History of Present Illness HPI narrative: Gabriella is a 63 year old female with fatty liver, history of alcohol abuse is in remission since last March, subclinical hypothyroidism, hypertension, GERD, and previous surgical abdominal plasty presents emergency department via private car with abdominal and lower back pain. Patient states that since April she has had increased joint pain involving the wrist elbow shoulders and hips, this is progressively got works for her, recently she develops abdominal bloating and lower back pain. She denies any nausea vomiting, no pain with eating, she just feels bloated. She has had normal bowel habits, she feels that her urine has been darker. She was recently put on levothyroxine after her rehab in March. Primary care provider has been checking auto-immune labs, SHEELA was mild positive, she was scheduled to see Rheumatology on 09/23, she is scheduled to see Neurology next . Patient feels better when she ambulates, worse when she sits. No fevers or chills, no weight loss. Patient has been gaining weight, she is on celecoxib for her arthritis, she had been on prednisone in the past as well. She denies any pain at this time. <Joey Garcia MD - Last Filed: 09/23/24 12:07> Related Data Home medications: Home Medications ?Medication ?Instructions ?Recorded ?Confirmed atorvastatin 20 mg tablet 20 mg PO QDAY 02/09/22 06/23/24 albuterol sulfate 90 mcg/actuation 1 - 2 puff inhalation Q4H PRN 11/02/22 06/23/24 aerosol inhaler dyspnea fluticasone 250 mcg-salmeterol 50 1 inh inhalation BID 11/02/22 06/23/24 mcg/dose blistr powdr for inhalation (Advair Diskus) valacyclovir 1 gram tablet 2,000 mg PO BID PRN 11/02/22 06/23/24 (Valtrex) cyanocobalamin (vitamin B-12) 100 2,500 mcg PO QDAY 06/23/24 06/23/24 mcg tablet (Vitamin B-12) folic acid 1 mg tablet 1 mg PO DAILY 06/23/24 06/23/24 levothyroxine 25 mcg tablet 25 mcg PO QAM 06/23/24 06/23/24 thiamine HCl (vitamin B1) 100 mg 100 mg PO QDAY 06/23/24 06/23/24 tablet (Vitamin B-1) <Joey Garcia MD - Last Filed: 09/23/24 12:07> Allergies/adverse reactions: Allergies Allergy/AdvReac Type Severity Reaction Status Date / Time No Known Drug Allergies Allergy Verified 08/20/24 10:54 <Joey Garcia MD - Last Filed: 09/23/24 12:07> Review of Systems Status of ROS: Reports: 10 or more systems reviewed and unremarkable except as noted in History and below <Joey Garcia MD - Last Filed: 09/23/24 12:07> [facility] Medical History: Medical History (Updated 09/04/24 @ 00:00 by Background Daemon) Fatty liver ?K76.0 - Fatty (change of) liver, not elsewhere classified (ICD-10) Hypertension ?I10 - Essential (primary) hypertension (ICD-10) Alcohol abuse, in remission ?F10.11 - Alcohol abuse, in remission (ICD-10) GERD (gastroesophageal reflux disease) ?K21.9 - Gastro-esophageal reflux disease without esophagitis (ICD-10) <Joey Garcia MD - Last Filed: 09/23/24 12:07> Surgical History: Surgical History (Updated 06/23/24 @ 11:43 by Wilda Flores) History of esophagogastroduodenoscopy (EGD) ?Z98.890 - Other specified postprocedural states (ICD-10) History of hammertoe correction (11/05/22) ?Z98.890 - Other specified postprocedural states (ICD-10) ?Z87.39 - Personal history of other diseases of the musculoskeletal system and connective tissue (ICD-10) Hx of abdominoplasty ?Z98.890 - Other specified postprocedural states (ICD-10) History of hand surgery ?Z98.890 - Other specified postprocedural states (ICD-10) <Joey Garcia MD - Last Filed: 09/23/24 12:07> Family History: Family History Unknown Myocardial infarction <Joey Garcia MD - Last Filed: 09/23/24 12:07> Social History: Social History (Reviewed 06/23/24 @ 11:11 by Elisabeth Cr ~ [facility], [facility]) Smoking Status: Former smoker What tobacco products do you use: cigarettes Smoking quit date/years: >15 years ago How often do you have a drink containing alcohol: 4 or more times a week How many standard drinks containing alcohol do you have on a typical day: 3 or 4 How often do you have six or more drinks on one occasion: Daily or almost daily AUDIT-C Alcohol total score: 9 Non-prescribed substance use: denies use Caffeine: Yes Are you using contraception or practicing any form of control: No <Joey Garcia MD - Last Filed: 09/23/24 12:07> Exam Narrative: Exam Narrative: General: No obvious distress sitting comfortably HEENT: Pupils equal round reactive to light, extraocular muscles intact, Neck: Supple Lungs: Clear to auscultation Heart; normal sinus rhythm Abdomen: No organomegaly, soft, nontender to palpation, bowel sounds present Muscle skeletal: No joint swelling, mild tenderness to palpation the paraspinal musculature lower lumbar area, no midline tenderness or step-offs +5 five strength upper lower extremities Neuro: Alert awake and oriented x3, GCS 15 <Joey Garcia MD - Last Filed: 09/23/24 12:07> Const: Vital Signs, click to edit/add: Vital Signs - 24 hr 08/20/24 10:52 08/20/24 16:50 Temperature 97.8 F Pulse Rate [Pulse Oximeter] 80 60 Respiratory Rate 18 16 Blood Pressure [Ri ght Upper Arm] 135/92 H 136/91 H Pulse Oximetry 98 98 Oxygen Delivery Me thod Room Air Room Air <Joey Garcia MD - Last Filed: 09/23/24 12:07> Vital Signs, click to edit/add: Vital Signs - 24 hr 08/20/24 10:52 08/20/24 16:50 Temperature 97.8 F Pulse Rate [Pulse Oximeter] 80 60 Respiratory Rate 18 16 Blood Pressure [Ri ght Upper Arm] 135/92 H 136/91 H Pulse Oximetry 98 98 Oxygen Delivery Me thod Room Air Room Air <Raoul Caruso DO - Last Filed: 08/20/24 17:03> Course Course ED Course: 2:30 PM: aidet performed, vitals stable at this time, workup will include CBC, CRP, sedimentation rate, CMP, lipase, urinalysis, patient has proper follow-up with rheumatology as well as Neurology, will rule out any acute causes at this time, consideration for imaging once labs return. Differential diagnosis include but not limited to autoimmune disorders, toward arthritis, osteoarthritis, peripheral neuropathies, neuromuscular disease, as well as all etiologies. <Joey Garcia MD - Last Filed: 09/23/24 12:07> Reevaluation(s) Reevaluation #1: 4:30 PM: Patient was updated on lab results, CBC showed no leukocytosis or anemia, CRP and sedimentation rate were normal, normal electrolytes, LFTs and renal function, normal lipase, UA unremarkable as well as CK level, patient has proper follow-up with rheumatology as well as Neurology, will plan to discharge, reasons return were given. <Joey Garcia MD - Last Filed: 09/23/24 12:07> Vital Signs Vital signs: Initial Vital Signs Temperature 97.8 F 08/20/24 10:52 Temperature Source Temporal Artery Scan 08/20/24 10:52 Pulse Rate 80 08/20/24 10:52 Pulse Rhythm Regular 08/20/24 10:52 Pulse Strength 3+ Normal 08/20/24 10:52 Respiratory Rate 18 08/20/24 10:52 Blood Pressure 135/92 H 08/20/24 10:52 Blood Pressure Mean 106 H 08/20/24 10:52 Blood Pressure Position Sitting 08/20/24 10:52 Pulse Oximetry 98 08/20/24 10:52 Oxygen Delivery Method Room Air 08/20/24 10:52 Vital Signs Temperature 97.8 F 08/20/24 10:52 Pulse Rate 80 08/20/24 10:52 Respiratory Rate 18 08/20/24 10:52 Blood Pressure 135/92 H 08/20/24 10:52 Pulse Oximetry 98 08/20/24 10:52 Oxygen Delivery Method Room Air 08/20/24 10:52 Temperature 97.8 F 08/20/24 10:52 Pulse Rate 60 08/20/24 16:50 Respiratory Rate 16 08/20/24 16:50 Blood Pressure 136/91 H 08/20/24 16:50 Pulse Oximetry 98 08/20/24 16:50 Oxygen Delivery Method Room Air 08/20/24 16:50 <Joey Garcia MD - Last Filed: 09/23/24 12:07> Initial Vital Signs Temperature 97.8 F 08/20/24 10:52 Temperature Source Temporal Artery Scan 08/20/24 10:52 Pulse Rate 80 08/20/24 10:52 Pulse Rhythm Regular 08/20/24 10:52 Pulse Strength 3+ Normal 08/20/24 10:52 Respiratory Rate 18 08/20/24 10:52 Blood Pressure 135/92 H 08/20/24 10:52 Blood Pressure Mean 106 H 08/20/24 10:52 Blood Pressure Position Sitting 08/20/24 10:52 Pulse Oximetry 98 08/20/24 10:52 Oxygen Delivery Method Room Air 08/20/24 10:52 Vital Signs Temperature 97.8 F 08/20/24 10:52 Pulse Rate 80 08/20/24 10:52 Respiratory Rate 18 08/20/24 10:52 Blood Pressure 135/92 H 08/20/24 10:52 Pulse Oximetry 98 08/20/24 10:52 Oxygen Delivery Method Room Air 08/20/24 10:52 Temperature 97.8 F 08/20/24 10:52 Pulse Rate 60 08/20/24 16:50 Respiratory Rate 16 08/20/24 16:50 Blood Pressure 136/91 H 08/20/24 16:50 Pulse Oximetry 98 08/20/24 16:50 Oxygen Delivery Method Room Air 08/20/24 16:50 <Raoul Caruso DO - Last Filed: 08/20/24 17:03> Medical Decision Making MDM Narrative Medical decision making narrative: Patient signed out to me pending CK and TSH. Both were normal. The expected disposition at transfer care was disposition. Patient will be discharged <Raoul Caruso DO - Last Filed: 08/20/24 17:03> Lab Data Labs: Lab Results 08/20/24 08/20/24 08/20/24 Range/Units 15:15 15:20 16:21 WBC 5.48 (4.50-11.00) K/uL RBC 4.25 (4.00-5.20) m/uL Hgb 12.8 (12.0-16.0) gm/dL Hct 39.1 (33.0-51.0) % MCV 92 (80-100) fL MCH 30 (26-34) pg MCHC 33 (32-36) gm/dL RDW Coeff of [place] 13.1 (11.5-15.5) % Plt Count 209 (140-440) K/uL Neut % (Auto) 54.6 (42.0-72.0) % Lymph % (Auto) 28.3 (20-44) % [place] % (Auto) 11.9 H (0.0-11.0) % Eos % (Auto) 3.6 (0.0-7.0) % Baso % (Auto) 0.7 (0.0-3.0) % Neut # (Auto) 2.99 (1.7-7.0) K/uL Lymph # (Auto) 1.55 (0.90-2.90) K/uL [place] # (Auto) 0.70 (0.00-0.90) K/UL Eos # (Auto) 0.20 (0.00-0.50) K/uL Baso # (Auto) 0.04 (0.00-0.30) K/uL Abs Immat Gran (auto) 0.05 (0.00-0.30) K/uL Imm/Tot Granulo (auto) 0.9 % ESR 12 (2-20) mm/hr Sodium 140 (135-149) mmol/L Potassium 3.9 (3.6-5.1) mmol/L Chloride 105 (96-114) mmol/L Carbon Dioxide 29 (20-32) mmol/L Anion Gap 6 L (7-15) mEq/L BUN 8 (7-30) mg/dL Creatinine 0.7 (0.5-1.5) mg/dL Estimated Creat Clear 50.37 Estimated GFR 98 ml/min Glucose 73 (60-115) mg/dL Calcium 9.6 (8.4-10.6) mg/dL Total Bilirubin 0.8 (0.1-1.5) mg/dL AST 23 (12-35) U/L ALT 14 (4-35) U/L Alkaline Phosphatase 78 (40-150) U/L Total Creatine Kinase 53 (41-117) U/L C-Reactive Protein < 0.5 L (0.5-1.0) mg/dL Total Protein 7.5 (6.0-8.3) g/dL Albumin 4.7 (3.3-5.0) g/dL Lipase 58 (23-300) U/L TSH 1.580 (0.270-4.20) uIU/mL Urine Color Yellow (Yellow) Urine Appearance Clear (Clear) Urine pH 8.0 (5.0-8.5) Ur Specific [place] 1.015 (1.000-1.030) Urine Protein Negative (Negative) Urine Glucose (UA) Negative (Negative) Urine Ketones Negative (Negative) Urine Blood Negative (Negative) Urine Nitrite Negative (Negative) Urine Bilirubin Negative (Negative) Urine Urobilinogen 0.2 (0.2-1.0) Ur Leukocyte Esterase Trace A (Negative) Urine RBC 0-2 (0-2) Urine WBC 0-2 (0-5) Ur Squamous Epith Cells Few (None-Few) Urine Bacteria None (None) Lab Acknowledgement Test Added <Joey Garcia MD - Last Filed: 09/23/24 12:07> Lab Results 08/20/24 08/20/24 08/20/24 Range/Units 15:15 15:20 16:21 WBC 5.48 (4.50-11.00) K/uL RBC 4.25 (4.00-5.20) m/uL Hgb 12.8 (12.0-16.0) gm/dL Hct 39.1 (33.0-51.0) % MCV 92 (80-100) fL MCH 30 (26-34) pg MCHC 33 (32-36) gm/dL RDW Coeff of [place] 13.1 (11.5-15.5) % Plt Count 209 (140-440) K/uL Neut % (Auto) 54.6 (42.0-72.0) % Lymph % (Auto) 28.3 (20-44) % [place] % (Auto) 11.9 H (0.0-11.0) % Eos % (Auto) 3.6 (0.0-7.0) % Baso % (Auto) 0.7 (0.0-3.0) % Neut # (Auto) 2.99 (1.7-7.0) K/uL Lymph # (Auto) 1.55 (0.90-2.90) K/uL [place] # (Auto) 0.70 (0.00-0.90) K/UL Eos # (Auto) 0.20 (0.00-0.50) K/uL Baso # (Auto) 0.04 (0.00-0.30) K/uL Abs Immat Gran (auto) 0.05 (0.00-0.30) K/uL Imm/Tot Granulo (auto) 0.9 % ESR 12 (2-20) mm/hr Sodium 140 (135-149) mmol/L Potassium 3.9 (3.6-5.1) mmol/L Chloride 105 (96-114) mmol/L Carbon Dioxide 29 (20-32) mmol/L Anion Gap 6 L (7-15) mEq/L BUN 8 (7-30) mg/dL Creatinine 0.7 (0.5-1.5) mg/dL Estimated Creat Clear 50.37 Estimated GFR 98 ml/min Glucose 73 (60-115) mg/dL Calcium 9.6 (8.4-10.6) mg/dL Total Bilirubin 0.8 (0.1-1.5) mg/dL AST 23 (12-35) U/L ALT 14 (4-35) U/L Alkaline Phosphatase 78 (40-150) U/L Total Creatine Kinase 53 (41-117) U/L C-Reactive Protein < 0.5 L (0.5-1.0) mg/dL Total Protein 7.5 (6.0-8.3) g/dL Albumin 4.7 (3.3-5.0) g/dL Lipase 58 (23-300) U/L TSH 1.580 (0.270-4.20) uIU/mL Urine Color Yellow (Yellow) Urine Appearance Clear (Clear) Urine pH 8.0 (5.0-8.5) Ur Specific [place] 1.015 (1.000-1.030) Urine Protein Negative (Negative) Urine Glucose (UA) Negative (Negative) Urine Ketones Negative (Negative) Urine Blood Negative (Negative) Urine Nitrite Negative (Negative) Urine Bilirubin Negative (Negative) Urine Urobilinogen 0.2 (0.2-1.0) Ur Leukocyte Esterase Trace A (Negative) Urine RBC 0-2 (0-2) Urine WBC 0-2 (0-5) Ur Squamous Epith Cells Few (None-Few) Urine Bacteria None (None) Lab Acknowledgement Test Added <Raoul Caruso DO - Last Filed: 08/20/24 17:03> Discharge Plan Discharge Clinical Impression: Joint pain <Joey Garcia MD - Last Filed: 09/23/24 12:07> Patient Disposition: Home, Self-Care <Joey Garcia MD - Last Filed: 09/23/24 12:07> Condition: Stable <Joey Garcia MD - Last Filed: 09/23/24 12:07> Instructions: Arthralgia (ED) <Joey Garcia MD - Last Filed: 09/23/24 12:07> Additional Instructions: make sure to follow-up with neurology and rheumatology. Return to emergency department for new or worsening symptoms. <Joey Garcia MD - Last Filed: 09/23/24 12:07> Prescriptions: No Action atorvastatin 20 mg tablet 20 mg PO QDAY folic acid 1 mg tablet 1 mg PO DAILY levothyroxine 25 mcg tablet 25 mcg PO QAM thiamine HCl (vitamin B1) [Vitamin B-1] 100 mg tablet 100 mg PO QDAY cyanocobalamin (vitamin B-12) [Vitamin B-12] 100 mcg tablet 2,500 mcg PO QDAY albuterol sulfate 90 mcg/actuation HFA aerosol inhaler 1 - 2 puff INHALATION Q4H PRN (Reason: dyspnea) fluticasone propion-salmeterol [Advair Diskus] 250-50 mcg/dose blister with device 1 inh INHALATION BID valacyclovir [Valtrex] 1 gram tablet 2,000 mg PO BID PRN <Joey Garcia MD - Last Filed: 09/23/24 12:07> Follow Up/Referrals: Yara Venegas PA-C [Primary Care Provider] <Joey Garcia MD - Last Filed: 09/23/24 12:07> Stand Alone Forms: [employer] Info Instructions <Joey Garcia MD - Last Filed: 09/23/24 12:07>
[2024-08-20 15:21] LABS: Basophils Absolute Auto 0.04 K/uL (0.00-0.30); Basophils Percent Auto 0.7 % (0.0-3.0); Eosinophils Percent Auto 3.6 % (0.0-7.0); Hematocrit 39.1 % (33.0-51.0); Hemoglobin* 12.8 gm/dL (12.0-16.0); Immature Granulocytes Abs Auto 0.05 K/uL (0.00-0.30); Immature Granulocytes Pct Auto 0.9 %; Lymphocytes Absolute Auto 1.55 K/uL (0.90-2.90); Lymphocytes Percent Auto 28.3 % (20-44); Mean Corpuscular HGB Conc 33 gm/dL (32-36); Mean Corpuscular Hemoglobin 30 pg (26-34); Mean Corpuscular Volume 92 fL (80-100); Monocytes Percent Auto 11.9 % (0.0-11.0); Neutrophils Absolute Auto 2.99 K/uL (1.7-7.0); Neutrophils Percent Auto 54.6 % (42.0-72.0); Platelet Count* 209 K/uL (140-440); RDW Coefficient of Variation % 13.1 % (11.5-15.5); Red Blood Count 4.25 m/uL (4.00-5.20); White Blood Count* 5.48 K/uL (4.50-11.00)
[2024-08-20 15:27] LABS: Slide Review Reflex No
[2024-08-20 15:33] LABS: Albumin* 4.7 g/dL (3.3-5.0); Chloride* 105 mmol/L (96-114); Potassium* 3.9 mmol/L (3.6-5.1); Sodium* 140 mmol/L (135-149)
[2024-08-20 15:36] LABS: Alanine Aminotransferase* 14 U/L (4-35); Aspartate Amino Transferase* 23 U/L (12-35); Blood Urea Nitrogen* 8 mg/dL (7-30); Creatinine* 0.7 mg/dL (0.5-1.5); Est. Creatinine Clearance* 50.37; Estimated Glomerular Filt Rate 98 ml/min
[2024-08-20 15:37] LABS: Alkaline Phosphatase* 78 U/L (40-150); Anion Gap 6 mEq/L (7-15); Bilirubin Total* 0.8 mg/dL (0.1-1.5); Calcium* 9.6 mg/dL (8.4-10.6); Carbon Dioxide* 29 mmol/L (20-32); Glucose* 73 mg/dL (60-115); Lipase* 58 U/L (23-300); Total Protein* 7.5 g/dL (6.0-8.3)
[2024-08-20 15:38] LABS: Appearance Urine Clear (Clear); Bilirubin Urine Negative (Negative); Blood Urine Negative (Negative); Color Urine Yellow (Yellow); Glucose Urine Negative (Negative); Ketones Urine Negative (Negative); Leukocyte Esterase Urine Trace (Negative); Nitrite Urine Negative (Negative); Protein Urine Negative (Negative); Specific Gravity Urine 1.015 (1.000-1.030); Urobilinogen Urine 0.2 (0.2-1.0)
[2024-08-20 15:57] LABS: C Reactive Protein* < 0.5 mg/dL (0.5-1.0)
[2024-08-20 16:06] LABS: Erythrocyte SedimentationRate* 12 mm/hr (2-20)
[2024-08-20 16:23] LABS: RBC Urine 0-2 (0-2); Squamous Epithelial Cell Urine Few (None-Few); WBC Urine 0-2 (0-5)
[2024-08-20 16:47] LABS: Creatine Kinase* 53 U/L (41-117)
[2024-08-20 16:50] VITALS: BP 136/91; PULSE 60; RESP 16; O2SAT 98
--- OUTSIDE RECORDS SUMMARY | 2024-08-20 17:09 | XMS_ITS | Clinical Summary ---
Author Organization [facility] Address [address] [place] [id number] Care Team Providers Care Social And Political Studies Professor Name Role Phone No Ref-Primary, Physician Primary Care Provider Allergies Active Allergy Reactions Criticality Noted Date Comments No Known Drug Allergy 02/02/2002 Medications atorvastatin (LIPITOR) 20 MG tablet Take 20 mg by mouth daily. 4 Active folic acid (FOLVITE) 1 MG tablet Take 1 tablet by mouth daily. 4 025 Active vitamin B-12 (CYANOCOBALAMIN) 2500 MCG sublingual tablet Take 2,500 mcg by mouth daily. Active multivitamin w/minerals (MULTI-VITAMIN) tablet Take 1 tablet by mouth daily. Active traZODone (DESYREL) 150 MG tabletIndications: Insomnia, unspecified type Take 1 tablet (150 mg) by mouth at bedtime. 30 tablet 1 5 Active thiamine (B-1) 100 MG tabletIndications: Wernicke's encephalopathy Take 250 mg (2.5 mg) by mouth daily x 5 days, then 100 mg (1 tablet) by mouth daily thereafter 90 tablet 1 5 Active Active Problems Problem Noted Date Diagnosed Date Wernicke's encephalopathy 04/09/2024 Confusion 04/08/2024 Ataxia 04/08/2024 ROBERTA (generalized anxiety disorder) 03/30/2024 Alcohol use disorder, severe, dependence 024 Alcohol withdrawal syndrome with perceptual dist urbance 03/19/2024 HTN (hypertension) 07/05/2021 Alcohol abuse, in remission 03/04/2018 Fatty liver 02/19/2017 Vitamin D deficiency 08/02/2008 Insomnia, unspecified 07/20/2008 Swelling, mass, or lump in chest 11/14/2004 Allergic rhinitis 01/28/2004 Overview (01/06/2015): Problem list name updated by automated process. Provider to review Resolved Problems Problem Noted Date Diagnosed Date Resolved Date Acute UTI 03/19/2024 04/08/2024 Immunizations Immunization Administration Dates Next Due Influenza (IIV3) PF 03/17/2003,02/25/2002 TD,PF 7+ (Tenivac) 06/13/2006 Family History Medical History Relation Comments C.A.D. Father still living. Lipids Father Osteoporosis Maternal Aunt Relation Status Comments Father Alive Maternal Aunt Mother Alive Social History Tobacco Use Types Packs/Day Years Used Date Smoking Tobacco: Former Cigarettes 1 04/18/1986 - 02/16/2002 Alcohol Use Standard Drinks/Week Comments Yes 0 (1 standard drink = 0.6 oz pur e alcohol) Very occ. Adolescent Education Answer Date Record ed Getting School Help Needed Not on file 01/13 Food Insecurity Answer Date Recorded Within the past 12 months, d id you worry that your food would run out before you got money to buy more? No 04/08/2024 Within the past 12 months, d id the food you bought just not last and you didn t have money to get more? No 04/08/2024 Housing Stability Answer Date Recorded Do you have housing? (Housin g is defined as stable permanent housing and does not include staying outside in a car, in a tent, in an abandoned building, in an overnight chcf, or couch-surfing.) Yes 04/08/2024 Are you worried about losing your housing? No 04/08/2024 Financial Resource Strain Answer Date R ecorded Within the past 12 months, h ave you or your family members you live with been unable to get utilities (heat, electricity) when it was really needed? No 04/08/2024 Transportation Needs Answer Date Record ed Within the past 12 months, h as lack of transportation kept you from medical appointments, getting your medicines, non-medical meetings or appointments, work, or from getting things that you need? No 04/08/2024 Interpersonal Safety Answer Date Record ed Do you feel physically and e motionally safe where you currently live? Yes 04/08/2024 Within the past 12 months, h ave you been hit, slapped, kicked or otherwise physically hurt by someone? No 04/08/2024 Within the past 12 months, h ave you been humiliated or emotionally abused in other ways by your partner or ex-partner? No 04/08/2024 Comments No Sex and Gender Information Value Date Recorded Sex Assigned at Not on file Legal Sex Female 4:17 AM STENCIL MAKER Gender Identity Not on file Sexual Orientation Not on file Last Filed Vital Signs Vital Sign Reading Time Taken Comments Blood Pressure 117/77 04/10/2024 11:18 AM STENCIL MAKER Pulse 82 04/10/2024 11:18 AM STENCIL MAKER Temperature 36.8 C (98.2 F) 04/10/2024 11:18 AM STENCIL MAKER Respiratory Rate 18 04/10/2024 11:18 AM STENCIL MAKER Oxygen Saturation 97% 04/10/2024 11:18 AM STENCIL MAKER Inhaled Oxygen Concentration - - Weight 55 kg (121 lb 4.1 oz) 04/08/2024 4:20 PM STENCIL MAKER Height 162.6 cm (5' 4) 04/08/2024 10:23 AM STENCIL MAKER Body Mass Index 20.81 04/08/2024 10:23 AM STENCIL MAKER Plan of Treatment Health Maintenance Due Date Last Done Comments ADVANCE CARE PLANNING 1960 ANNUAL REVIEW OF HM ORDERS 1960 CT COLONOGRAPHY 1960 FIT 1960 FLEX SIG 1960 sDNA (Cologuard) 1960 HIV SCREENING 1976 Pneumococcal Vaccine: 50+ Years (1 of 2 - PCV) 1980 LIPID 06/20/2008 06/21/2007, 11/2006, 06/01/2005, Additional history exists PAP 03/24/2020 03/24/2019, 06/06, 06/13/2006, Additional history exists COVID-19 Vaccine () 12/08/2023 PHQ-2 (once per calendar year) 2024 MAMMO SCREENING 06/16/2024 06/17/2023, 03/04/2023, 05/09/2022, Additional history exists YEARLY PREVENTIVE VISIT 06/16/2024 06/17/19 24, 05/09/2022, 04/25/2021, Additional history exists INFLUENZA VACCINE (Season Ended) 2024 02/01/2022, 04/25/2021, 03/24/2019, Additional history exists BMP 04/10/2025 04/10/2024, 05/2024, 04/08/2024, Additional history exists DIABETES SCREENING 04/10/2027 04/10/2024, 0 04/10/2024, 04/09/2024, Additional history exists DTAP/TDAP/TD IMMUNIZATION (3 - Td or Tdap) 03/24/2029 03/24/2019, 07/20/2008, 06/13/2006 COLONOSCOPY 08/09/2032 08/09/2022, 04/17/2005 COLORECTAL CANCER SCREENING 08/09/2032 RSV VACCINE (1 - 1-dose 75+ series) 2036 LUNG CANCER SCREENING Discontinued 03/18/2006 , 11/20/2004, 05/17/2004, Additional history exists HEPATITIS C SCREENING Completed 02/26/2017, 006 ZOSTER IMMUNIZATION Completed 09/13/2022, 3 HPV IMMUNIZATION Aged Out No longer e ligible based on patient's age to complete this topic MENINGITIS IMMUNIZATION Aged Out No l onger eligible based on patient's age to complete this topic Procedures Procedure Name Priority Date/Time Associated Diagnosis Comments COMPREHENSIVE METABOLIC PANEL Routine 04/10/2024 5:52 AM STENCIL MAKER C DIGITIZATION, MAMMOGRAPHIC HANNAH Routine 08/14/2007 1:41 PM CDT CL AFF A.M.A. LIPID PANEL Routine 06/21/2007 8:25 AM CDT Routine Medical Exam HCL PAP THIN LAYER SCREEN Routine 06/18/2007 12:00 AM CDT Routine Medical Exam HC CT THORAX W/O CONT Routine 03/18/2006 9:03 AM STENCIL MAKER HEPATITIS C ANTIBODY Routine 06/01/2005 11:02 AM STENCIL MAKER COLONOSCOPY Routine 04/17/2005 8:50 AM STENCIL MAKER from Last 3 Months or Most Recently Relevant to Health Maintenance Results * (ABNORMAL) Comprehensive metabolic panel (04/10/2024 5:52 AM STENCIL MAKER) Sodium 144 135 - 145 mmol/L 04/10/2024 6:20 AM [facility] Potassium 3.7 3.4 - 5.3 mmol/L 04/10/2024 6:20 AM [facility] Carbon Dioxide (CO2) 22 22 - 29 mmol/L 04/10/2024 6:20 AM [facility] Anion Gap 12 7 - 15 mmol/L 04/10/2024 6:20 AM [facility] Urea Nitrogen 5.9(L) 8.0 - 23.0 mg/dL 04/10/2024 6:20 AM [facility] Creatinine 0.91 0.51 - 0.95 mg/dL 04/10/2024 6:20 AM [facility] GFR Estimate 71 >60 mL/min/1.7 3m2 04/10/2024 6:20 AM [facility] Comment:eGFR calculated usin 2020 CKD-EPI equation. Calcium 9.4 8.8 - 10.4 mg/dL 04/10/2024 6:20 AM [facility] Comment:Reference intervals for this test were updated on 10/22/2023 to reflect our healthy population more accurately. There may be differences in the flagging of prior results with similar values performed with this method. Those prior results can be interpreted in the context of the updated reference intervals. Chloride 110(H) 98 - 107 mmol/L 04/10/2024 6:20 AM [facility] Glucose 96 70 - 99 mg/dL 04/10/2024 6:20 AM [facility] Alkaline Phosphatase 70 40 - 150 U/L 04/10/2024 6:20 AM [facility] AST 14 0 - 45 U/L 04/10/2024 6:20 AM [facility] ALT 10 0 - 50 U/L 04/10/2024 6:20 AM STENCIL MAK[facility] Protein Total 6.2(L) 6.4 - 8.3 g/dL 04/10/2024 6:20 AM STENCIL MAKER [facility] Albumin 3.7 3.5 - 5.2 g/dL 04/10/2024 6:20 AM STENCIL MAKER [facility] Bilirubin Total 0.4 <=1.2 mg/dL 04/10/2024 6:20 AM STENCIL MAKER [facility] Blood STRUCTURE OF RIGHT UPPER LIMB / Unknown Venipuncture / Unknown 04/10/2024 5:52 AM STENCIL MAKER 04/10/2024 5:54 AM STENCIL MAKER Janett Martinez PA-C LAB - BLOOD ORDERABLES Final Result [facility] [address] Room [address] [place] [address] * DIGITIZATION, MAMMOGRAPHIC HANNAH (08/14/2007 1:41 PM CDT) Anatomical Region Laterality Modality Other 08/14/2007 1:41 PM CDT Impressions 08/14/2007 4:28 PM CDT EXAM: BILATERAL SCREENING DIGITAL MAMMOGRAPHY HISTORY/COMPARISON: Routine. 07-18-06, 05-30-05 Breast parenchyma: Heterogeneously dense. FINDINGS: There is a loose cluster of calcifications in the inner left breast which has been present previously and is likely benign.. No new or worrisome findings. IMPRESSION: Category 1. Negative. Note: CAD (computer aided diagnosis) was utilized in interpretation of this mammogram. Kaveh Metzger MD GENERAL IMAGING Edit ed * A.M.A. LIPID PANEL (06/21/2007 8:25 AM CDT) Cholesterol 176 0 - 200 mg/dL [facility] Comment: LDL Cholesterol is the primary guide to therapy: LDL-cholesterol goal in high risk patients is <100 mg/dL and in very high risk patients is <70 mg/dL. The NCEP recommends further evaluation of: patients with cholesterol <200 mg/dL if additional risk factors are present, cholesterol >240 mg/dL, triglycerides >150 mg/dL, or HDL <40 mg/dL. Triglycerides 73 0 - 150 mg/dL [facility] HDL Cholesterol 62 50 - 110 mg/dL [facility] LDL Cholesterol Calculated 100 0 - 129 mg/dL [facility] Comment: LDL Cholesterol is the primary guide to therapy: LDL-cholesterol goal in high risk patients is <100 mg/dL and in very high risk patients is <70 mg/dL. VLDL-Cholesterol 15 0 - 30 mg/dL [facility] Cholesterol/HDL Ratio 2.8 0.0 - 5.0 [facility] 06/21/2007 8:25 AM CDT 06/21/2007 8:30 AM CDT us Kaveh Metzger MD LABORATORY Yaa l Result Performing Organization Address City/State/[facility] Co de Phone Number [address] [phone] * A THIN LAYER PAP SCREEN (06/18/2007 12:00 AM CDT) PAP CHRISTINA Ken Report Patient Name: GABRIELLA NICE MR#: [id number] Specimen #: [id number] Collected: 06/18/2007 Received: 06/19/2007 Reported: 06/20/2007 15:42 Ordering Phy(s): EDITH METZGER SPECIMEN/STAIN PROCESS: Pap thin layer prep screening ([facility]) Pap-Cyto x 1, Reflex HPV x 1 SOURCE: Cervical, endocervical Pap thin layer prep screening ([facility]) SPECIMEN ADEQUACY: Satisfactory for evaluation. -Transformation zone component present. CYTOLOGIC INTERPRETATION: Negative for Intraepithelial Lesion or Malignancy Electronically signed out by: [employer] (ASCP) Processed and screened at [facility] CLINICAL HISTORY: LMP: 2-08 Previous normal pap Date of Last Pap: 06-13-06, TESTING LAB LOCATION: [facility] [address] [place] [address] COLLECTION SITE: Client: [facility] Location: ALEXA (R) MORENITA 06/18/2007 06/19/2007 8:2 2 PM CDT Kaveh Metzger MD LABORATORY Yaa l Result COPATH * CT SCAN CHEST (03/18/2006 9:03 AM STENCIL MAKER) Anatomical Region Laterality Modality Other 03/18/2006 9:03 AM STENCIL MAKER Impressions 03/22/2006 2:[address] CHEST WITHOUT CONTRAST LIMITED 03/18/2006 History: Indeterminate nodules. Technique: 5 mm images through a portion of the mid and upper chest without contrast. Comparison to 11/20/2004. Findings: Tiny nodule in right upper lung laterally on image 16 is stable. Two tiny peripheral nodules in the left upper lung on image 13 are also stable. These have been stable dating back to 05/17/2004 and are considered benign. No new findings in the visualized portion of the chest. Impression: Three tiny pulmonary nodules are stable since 05/17/2004 and are considered benign. Kathi Chavez MD SPECIAL IMAGING STUDIES Edited * Hepatitis C antibody (06/01/2005 11:02 AM STENCIL MAKER) Hepatitis C Antibody Negative NEG MISYS 06/01/2005 11:0 2 AM STENCIL MAKER 06/01/2005 11:08 AM STENCIL MAKER Nathan Sims MD LAB - BLOOD ORDERABLES Final Res ult MISYS * COLONOSCOPY (04/17/2005 8:50 AM STENCIL MAKER) COLONOSCOPY Endoscopy ___ Patient Name: Gabriella Nice Gender: F Procedure Date: 04/17/2005 8:50 AM Date of : 1960 Age: 44 Admit Type: Outpatient Attending MD: Barrington Triplett ___ Procedure: Colonoscopy Indications: Diarrhea with black stools since February,. Hemepositive stool Providers: Barrington Triplett MD Referring MD: Kecia Virk MD Medicines: Atropine IVP 0.4 mgs, Fentanyl (Sublimaze) IVP 150 mcgs, Versed (Midazolam) IVP 2 mgs Complications: No immediate complications ___ Procedure: - A History and Physical has been performed, and patient medication allergies have been reviewed. The patient The risks and benefits of the procedure and the sedation options and risks were discussed with the patient. All questions were answered and informed consent was obtained. Patient identification and proposed procedure were verified prior to the procedure by the physician in the endoscopy suite. Mental Status Examination: normal. Airway Examination: normal oropharyngeal airway and neck mobility. Respiratory Examination: clear to auscultation. CV Examination: normal. ASA Grade Assessment: P1 A normal healthy patient. After reviewing the risks and benefits, the patient was deemed in satisfactory condition to undergo the procedure. The anesthesia plan was to use moderate sedation / analgesia (conscious sedation). Immediately prior to administration of medications, the patient was re-assessed for adequacy to receive sedatives. The heart rate, respiratory rate, oxygen saturations, blood pressure, adequacy of pulmonary ventilation, and response to care were monitored throughout the procedure. The physical status of the patient was re-assessed after the procedure. After obtaining informed consent, the colonoscope was passed under direct vision. Throughout the procedure, the patient's blood pressure, pulse, and oxygen saturations were monitored continuously. The [id number] #[id number] was introduced through the anus and advanced to the cecum, identified by appendiceal orifice & IC valve. The colonoscopy was accomplished with ease. The patient tolerated the procedure well. The quality of the prep was excellent. The total duration of the procedure was 18 minutes. Findings: The perianal and digital rectal examination was normal. Pertinent negatives include normal sphincter tone, no palpable rectal lesions and no anal lesion or abnormality was detected. A few small-mouthed diverticula were found in the sigmoid colon. Otherwise normal colon from the anus (including rectal retroflexion) to the base of the cecum. Biopsies were taken with a cold forceps for histology to rule out microscopic colitis. Impression: - Diverticulosis. - The exam was otherwise normal to the cecum. Recommendation: - Discharge patient to home (ambulatory). - Avoid all anticoagulants for 5 more days. - Await pathology results. - Call my office in 7 days for the report. - Repeat colonoscopy for screening purposes in 10 years or PRN sooner. - Proceed to EGD today because of history of excessive use of ibuprofen - Follow up with Dr. Virk as planned and get annual FOBT (fecal occult blood test). - The findings and recommendations were discussed with the patient. - The findings and recommendations were discussed with the patient's family. Barrington Triplett M.D. Barrington Triplett MD Signed Date: 04/17/2005 10:28 AM Number of Addenda: 0 I was physically present for the entire viewing portion of the exam. Note generated on 04/17/2005 8:50 AM RADIOLOGY RESULTS COLONOSCOPY RADIOLOG Y RESULTS 04/17/2005 8:50 AM STENCIL MAKER Barrington Triplett MD PROCEDURES Final Result RADIOLOGY RESULTS from Last 3 Months or Most Recently Relevant to Health Maintenance Insurance [place] [employer] [place] [employer] Direct[employer] For more information, please contact: [phone] * Full Code (Latest Code Status on File) Date Activated Date Inactivated Comments 04/08/2024 4:49 PM 04/10/2024 4:43 PM All basic and advanced life-sustaining interventions are performed as appropriate Question Answer Comments Code status determined by: Discussion with mary nt/ legal decision maker Care Teams Social And Political Studies Professor Relationship Specialty Start Date End Date No Ref-Primary, Physician PCP - General 04/08/24
--- OUTSIDE RECORDS SUMMARY | 2024-08-20 17:09 | XMS_ITS | Clinical Summary ---
Author Organization [email or web address] Address [address] [place] [address] Care Team Providers Care Outpatient Therapist Name Role Phone Yara Venegas PA-C Primary Care Provider Source Comments You are receiving this document as you are listed as the primary care provider,follow-up provider, or the patient has been referred to you for consultation.This is in compliance with the Medicare and[facility] EHR Incentive Program,which states Providers who transition their patient to another setting of careor provider of care or refers their patient to another provider of care shouldprovide summary care record for each transition of care or referral. [employer] Allergies Active Allergy Reactions Criticality Noted Date Comments Cat Dander Runny Nose 06/14/2009 Cat hair, dander and saliva Medications * This document contains information received from the source organization and may not represent a complete record from that organization. atorvastatin (LIPITOR) 20 MG tablet Take 1 Tablet (20 mg) by mouth daily. 30 Tablet 1 04/06/2024 Active escitalopram (LEXAPRO) 5 MG tablet Take 1 Tablet (5 mg) by mouth every evening. 30 Tablet 1 04/06/2024 5 Active thiamine 100 MG tablet Take 1 Tablet (100 mg) by mouth daily. 30 Tablet 1 04/07/2024 Active folic acid 1 MG tablet Take 1 Tablet (1 mg) by mouth daily. 30 Tablet 1 04/07/2024 5 Active traZODone (DESYREL) 300 MG tablet Take 1 Tablet (300 mg) by mouth daily at bedtime. 30 Tablet 1 04/06/2024 Active Active Problems Problem Noted Date Diagnosed Date ROBERTA (generalized anxiety disorder) 03/30/2024 Alcohol use disorder, severe, dependence 024 Alcohol withdrawal syndrome with perceptual dist urbance 03/19/2024 Acute UTI 03/19/2024 Resolved Problems Problem Noted Date Diagnosed Date Resolved Date Psychosis 03/19/2024 03/30/2024 Social History Tobacco Use Types Packs/Day Years Used Date Smoking Tobacco: Former Cigarettes Passive Smoke Exposure: Past Smokeless Tobacco: Never Tobacco Cessation:Counseling Given: Not Answered Alcohol Use Standard Drinks/Week Comments Yes 0 (1 standard drink = 0.6 oz pure alcohol) Ernesto Light beer. 7-8 cans per day [facility] [employer] Answer Date Recorded In the past 12 months has [facility] [employer], gas, oil, or water [employer] threatened to shut off services in your home? No 03/18/2024 Humiliation, Afraid, Rape, and Kick questionnair e Answer Date Recorded Within the last year, have y ou been afraid of your partner or ex-partner? No 03/18/2024 Within the last year, have y ou been humiliated or emotionally abused in other ways by your partner or ex-partner? No Within the last year, have y ou been kicked, hit, slapped, or otherwise physically hurt by your partner or ex-partner? No 03/18/2024 Within the last year, have y ou been raped or forced to have any kind of sexual activity by your partner or ex-partner? No 03/18/2024 Hunger Vital Sign Answer Date Recorded Within the past 12 months, y ou worried that your food would run out before you got the money to buy more. Never true 03/18/20 24 Within the past 12 months, t he food you bought just didn't last and you didn't have money to get more. Never true 03/18/2024 PRAPARE - Transportation Answer Date Re corded In the past 12 months, has l ack of transportation kept you from medical appointments or from getting medications? No 03/08 In the past 12 months, has l ack of transportation kept you from meetings, work, or from getting things needed for daily living? No 03/18/2024 Housing Stability Vital Sign Answer Pavan e Recorded In the last 12 months, was t here a time when you were not able to pay the mortgage or rent on time? No 03/18/2024 Number of Times Moved in the Last Year Not on fi le 03/18/2024 At any time in the past 12 m [facility], were you homeless or living in a alf (including now)? No 03/18/2024 Comments Unknown Sex and Gender Information Value Date Recorded Sex Assigned at Not on file Legal Sex Female 4:22 AM CDT Gender Identity Not on file Sexual Orientation Not on file Last Filed Vital Signs Vital Sign Reading Time Taken Comments Blood Pressure 118/81 04/07/2024 7:54 AM OCCUPATIONAL HEALTH COORDINATOR Pulse 87 04/07/2024 7:54 AM OCCUPATIONAL HEALTH COORDINATOR Temperature 36.6 C (97.8 F) 04/07/2024 7:54 AM OCCUPATIONAL HEALTH COORDINATOR Respiratory Rate 16 04/07/2024 7:54 AM OCCUPATIONAL HEALTH COORDINATOR Oxygen Saturation 97% 04/05/2024 7:49 AM OCCUPATIONAL HEALTH COORDINATOR Inhaled Oxygen Concentration - - Weight 55.7 kg (122 lb 12.8 oz) 04/01/2024 8:37 AM OCCUPATIONAL HEALTH COORDINATOR Height 162.6 cm (5' 4) 03/18/2024 5:00 PM OCCUPATIONAL HEALTH COORDINATOR Body Mass Index 21.08 03/18/2024 5:00 PM OCCUPATIONAL HEALTH COORDINATOR Plan of Treatment Health Maintenance Due Date Last Done Comments Colon Cancer Screening Plan Due 1961 Hep C Screening (Preventive Services) 1961 HIV Screening (Preventive Services) 1977 Adult Preventive Visit 12/23/1979 Cervical Cancer Screening Due 01/03/1999 01/02/1999 Cholesterol 2006 Pneumococcal Vaccine 50+ Yrs (1 of 1 - PCV) 12/23/2011 COVID-19 Vaccine ( - season) 2023 Mammogram 06/16/2024 06/17/2023, 02/0 04/2022, 04/21/2021, Additional history exists Influenza Vaccine (Season Ended) 2024 02/01/2022, 04/25/2021, 03/24/2019, Additional history exists DTaP/Tdap/Td Vaccine (3 - Tdap) 03/24/2029 03/24/2019, 07/20/2008, 06/13/2006 RSV Vaccine (1 - 1-dose 75+ series) 2036 Zoster/Shingles Vaccine Completed 09/13/2022, 06/11 HepA Vaccine Aged Out No longer eligi ble based on patient's age to complete this topic HepB Vaccine Aged Out No longer eligi ble based on patient's age to complete this topic Hib Vaccine Aged Out No longer eligi ble based on patient's age to complete this topic IPV (Polio) Vaccine Aged Out No longe r eligible based on patient's age to complete this topic MCV4 Vaccine Aged Out No longer eligi ble based on patient's age to complete this topic Meningococcal B Vaccine Aged Out No l onger eligible based on patient's age to complete this topic Procedures Procedure Name Priority Date/Time Associated Diagnosis Comments ANATOMICAL PATH-C Routine 01/02/1999 5:5 4 AM CDT from Last 3 Months or Most Recently Relevant to Health Maintenance Results * Anatomical Path-C (01/02/1999 5:54 AM CDT) PAP Smear SEE TEXT No normal range HP CONVERSION Comment: Patient: GABRIELLA VALDOVINOS CERVICAL CYTOLOGY REPORT Pathology # [id number] Date Obtained: Date Received: LMP: 12-09-98 CLINICAL HIST CERVICAL SMEAR SPECIMEN ADEQUACY: Satisfactory. ENDOCERVICAL CELLS: Present. CYTOLOGIC IMPRESSION: Within Normal Limits (Negative). Fungal organisms identified. Verified 01/09/99 by: AYE (electronic signature) 01/02/1999 5:54 AM CDT Trey Real MD LAB_[email or web address] Final Result HP CONVERSION from Last 3 Months or Most Recently Relevant to Health Maintenance Insurance [facility] Advance Directives * Full Code (Latest Code Status on File) Date Activated Date Inactivated Comments 03/18/2024 5:34 PM 04/07/2024 2:48 PM Care Teams Outpatient Therapist Relationship Specialty Start Date End Date Yara Venegas PA-C [address] [place] [address] PCP - General Physician Aerial Photograph Interpreter 03/18/24
== END 2024-08-20 17:08 | disposition home or self-care (01) ==
PROVIDERS: Emergency Provider Student in an Organized Health Care Education/Training Program; PCP Physician Assistant
DX: M54.50 Low back pain, unspecified (principal)
CPT/HCPCS: 36415; 80053; 81001; 82550; 83690; 84443; 85025; 85651; 86140; 87086; 99283; 99284